=== PATIENT | male | born 1945 | race Caucasian/White ===

== ENCOUNTER 2020-04-20 06:29 | Day surgery (SDC) | payer OTHER, SELFPAY ==
[2020-04-14 13:28] VITALS: BMI 25.8
--- NOTE | 2020-04-18 14:51 | HO.ANESPROP2 ---
Documented by User: Ceci Lane 04/18/20 14:53 HPI - Anesthesia Eval Consult details Narrative: 75yo M for Upper Endoscopy and Colonoscopy [facility] Active Problems Active Problems: All Active Problems (Updated 04/14/20 @ 13:28 by Brissa Woo) Annual physical exam (Acute) Arrhythmia (Acute) Impacted cerumen of right ear (Acute) BPH (benign prostatic hyperplasia) (Acute) Hypertension (Acute) Mullins's esophagus (Acute) Past Medical History Medical History (Updated 04/20/20 @ 07:28 by Arabella Hampton) Arrhythmia Mullins's esophagus BPH (benign prostatic hyperplasia) Constipation GERD (gastroesophageal reflux disease) Glaucoma Hiatal hernia History of alcohol abuse Hypertension Tubular adenoma of colon Family History Family History Father No problems noted. Mother No problems noted. Brother In good health Sister In good health Son In good health Surgical History Surgical History History of esophagogastroduodenoscopy (EGD) History of eye surgery Hx of colonoscopy Social History Social History Are you a primary home health care social worker to a significant other at home: No Do you presently have visiting nurse or other home services: No Alcohol intake: former Smoking Status: Former smoker Use of substances other than those prescribed or required for medical reasons: No Have you been hit, kicked, punched, or otherwise hurt by someone within the past year? If so, by whom?: No Advance Directives: No Advance Directives Information Provided: No Advance Directives on File: No Recently lost weight without trying: No Meds Allergies Allergy/AdvReac Type Severity Reaction Status Date / Time amlodipine Allergy Unknown Unknown Verified 04/13/20 10:36 lisinopril Allergy Unknown cough Verified 04/13/20 10:36 metoprolol Allergy Unknown Unknown Verified 04/13/20 10:36 Exam Exam Date and Time: April 18, 2020 1451 Height,Weight and Vital Signs: Height 5 ft 10 in Weight 81.647 kg Assessment and Plan Assessment Anesthesia Assessment: Chart Reviewed Documented by User: Arabella Hampton 04/20/20 07:31 [facility] Past Medical History Medical History (Updated 04/20/20 @ 07:28 by Arabella Hampton) Arrhythmia Mullins's esophagus BPH (benign prostatic hyperplasia) Constipation GERD (gastroesophageal reflux disease) Glaucoma Hiatal hernia History of alcohol abuse Hypertension Tubular adenoma of colon Family History Family History Father No problems noted. Mother No problems noted. Brother In good health Sister In good health Son In good health Family history of problems with anesthesia: No Surgical History Surgical History History of esophagogastroduodenoscopy (EGD) History of eye surgery Hx of colonoscopy History of Problems with Anesthesia: Yes (Slow awakening (2hrs) with fentanyl/versed for last endoscopy) Social History Social History Are you a primary home health care social worker to a significant other at home: No Do you presently have visiting nurse or other home services: No Alcohol intake: former Smoking Status: Former smoker Use of substances other than those prescribed or required for medical reasons: No Have you been hit, kicked, punched, or otherwise hurt by someone within the past year? If so, by whom?: No Advance Directives: No Advance Directives Information Provided: No Advance Directives on File: No Recently lost weight without trying: No Meds Allergies Allergy/AdvReac Type Severity Reaction Status Date / Time amlodipine Allergy Unknown Unknown Verified 04/13/20 10:36 lisinopril Allergy Unknown cough Verified 04/13/20 10:36 metoprolol Allergy Unknown Unknown Verified 04/13/20 10:36 Exam Height,Weight and Vital Signs: Vital Signs Temp Pulse Resp BP Pulse Ox 04/20/20 06:43 98.2 F 74 18 137/75 97 Airway Mallampati Class: III TM Dist: >3cm Neck ROM: Full Partial: Upper (1 tooth top right) Heart: RRR Lungs: CTAB Assessment and Plan Assessment Anesthesia Assessment: Anesthesia Plan Discussed and Chart Reviewed Final Anesthetic Review NPO: Yes ASA Class: II Final Preanesthetic Review: No Changes in Pt Med Stat, Meds/Allgs Chart Reviewed, Consent Obtained/Reviewed and Anes Risks/Benef Reviewed Patient Risk: Low Procedure Risk: Low Assessment/Block/Sedation in SS: Assess/Block/Sedation-SS Anesthetic Plan Anesthetic Plan: MAC: Disposition: Standard PACU
[2020-04-20 06:43] VITALS: BP 137/75; PULSE 74; RESP 18; TEMP 36.8; O2SAT 97
[2020-04-20] MEDS: Lactated Ringers 1,000 ML 100 ML IVCONT (07:04)
--- NOTE | 2020-04-20 07:30 | PC.NURSE ---
PATIENT STATES HE TOOK 2 ANTACID TABS AT 10 PM AND 0200 AM. ANESTHESIA AWARE.
[2020-04-20 08:35] VITALS: BP 105/63; PULSE 74; RESP 14; TEMP 36.1; O2SAT 93
--- NOTE | 2020-04-20 08:40 | PM.OP ---
Brief Operative Note Date of Service: 04/20/20 Pre-op diagnosis: Mullins's esophagus, History of colon polyps, Screening Post-op diagnosis: other (Mullins's esophagus, Hiatal hernia, Colon polyps) Procedure: EGD with biopsies, Colonoscopy to cecum and TI with snare polypectomy Surgeon: Jose C Quinonez Anesthesia: MAC Estimated blood loss (mL): 4.0 Pathology: other (A. Esophagus 34-35 cm B. Colon polyp at 60cm) Condition: stable Disposition: PACU
[2020-04-20 08:50] VITALS: BP 124/64; PULSE 70; RESP 18; TEMP 36.6; O2SAT 96
--- NOTE | 2020-04-20 09:40 | OP_ITS ---
SURGEON: Jose C Quinonez MD INDICATIONS: The patient presents for followup of Mullins's esophagus, personal history of tubular adenoma of the colon, and colorectal cancer screening. Full consent has been obtained from him for both procedures, including risks of bleeding and perforation. PREOPERATIVE DIAGNOSIS: POSTOPERATIVE DIAGNOSIS: PROCEDURE PERFORMED: ESTIMATED BLOOD LOSS: COMPLICATIONS: ANESTHESIA: Monitored anesthesia care. ASSISTANTS: SPECIMENS: PREOPERATIVE DIAGNOSES: History of Mullins's esophagus, personal history of tubular adenoma of the colon, colorectal cancer screening. POSTOPERATIVE DIAGNOSES: History of Mullins's esophagus, personal history of tubular adenoma of the colon, colorectal cancer screening, hiatal hernia, colon polyps, diverticulosis and internal hemorrhoids. DESCRIPTION OF PROCEDURE: The patient was placed in the left lateral decubitus position. The Olympus video gastroscope was passed in the posterior oropharynx and upper esophagus under direct vision. The scope was passed slowly into the distal esophagus. The gastroesophageal junction appeared at 35 cm. Extending from this to 34 cm, were 2 segments of Mullins's mucosa to a level of 34 cm. There was no associated esophagitis, masses, nor inflammation. The scope was entered into the stomach. There was a moderate-sized hiatal hernia. The scope was advanced to the pylorus and the duodenum was cannulated to the descending portion. The duodenum including the bulb appeared normal without mass or ulceration. The scope was withdrawn back into the stomach. The gastric antrum and body appeared normal with good peristalsis. The scope was retroflexed visualizing the proximal stomach carefully, which appeared normal, without any sign of mass or ulceration. The scope was straightened out and withdrawn back into the esophagus. Multiple biopsies were obtained from the Mullins's mucosa between 34 and 35 cm. Proximal to 34 cm, the esophageal mucosa appeared normal. The scope was withdrawn from the patient. He was turned around for the colonoscopy. The digital rectal exam revealed no abnormalities. The Olympus video pediatric colonoscope was entered into the rectum and advanced easily to the cecum. Once in the cecum, I did identify normal-appearing cecal pouch with appendiceal orifice and a normal-appearing ileocecal valve. The terminal ileum was cannulated and appeared normal. The scope was withdrawn back in the colon. The entire cecum and ileocecal valve appeared normal. The scope was slowly withdrawn assessing all mucosal surfaces carefully. Preparation was excellent. In the transverse colon, was a flat, but raised approximately 6 to 8 mm grossly adenomatous polyp, which was snared, but not recovered. The polypectomy site appeared clean, without any sign of residual polyp nor bleeding. At 60 cm, was an approximately 8 mm polyp, which was snared and recovered by suction. The polypectomy site appeared clean, without any sign of residual polyp nor bleeding. I did not visualize any other polyps, colitis, nor angiodysplasia. There was a mild amount of sigmoid diverticulosis. In the rectum, scope was retroflexed visualizing internal hemorrhoids, but no other pathology. The rectal mucosa appeared normal. The scope was straightened and withdrawn from the patient. He tolerated the procedure well and was returned to the recovery area in stable condition. IMPRESSION: 1. Mullins's esophagus, rule out dysplasia. 2. Hiatal hernia. 3. Colon polyps. 4. Diverticulosis. 5. Internal hemorrhoids. PLAN: The results of the pathology will be checked. I would recommend a repeat colonoscopy in 5 years for further surveillance. I would recommend a repeat upper endoscopy in 3 years for surveillance. He was advised not to use any aspirin and NSAIDs for 1 week. He will otherwise see me on a p.r.n. basis. He will continue his omeprazole. This has been discussed with his . PROCEDURES PERFORMED: Esophagogastroduodenoscopy with biopsies, and colonoscopy to the cecum and terminal ileum with snare polypectomy. MD CLHOE Hill/EDUARDO / [id number]
== END 2020-04-20 09:30 | disposition home or self-care (01) ==
PROVIDERS: PCP Internal Medicine; Visit Provider Internal Medicine
PROC: (CPT 45385; principal; 2020-04-20 07:30)
DX: Z12.11 Encounter for screening for malignant neoplasm of colon (principal); Z86.010 Personal history of colon polyps; D12.4 Benign neoplasm of descending colon; K57.30 Diverticulosis of large intestine without perforation or abscess without bleeding; K64.8 Other hemorrhoids; K21.9 Gastro-esophageal reflux disease without esophagitis; K22.70 Barrett's esophagus without dysplasia; K44.9 Diaphragmatic hernia without obstruction or gangrene; I10 Essential (primary) hypertension; Z79.899 Other long term (current) drug therapy; Z87.891 Personal history of nicotine dependence
CPT/HCPCS: 45385; 43239; 88305

== ENCOUNTER 2020-05-30 08:10 | Outpatient (REF) | payer OTHER, SELFPAY ==
--- NOTE | 2020-05-30 08:16 | ECG_ITS ---
Test Reason : CP Blood Pressure : / mmHG Vent. Rate : 068 BPM Atrial Rate : 068 BPM P-R Int : 176 ms QRS Dur : 086 ms QT Int : 400 ms P-R-T Axes : 033 035 025 degrees QTc Int : 425 ms Sinus rhythm with Premature atrial complexes Otherwise normal ECG When compared with ECG of 22-OCT-2018 08:07, Premature atrial complexes are now Present Referred By: Don Sampson Electronically Signed By:LINDA AQUINO
[2020-05-30 09:05] LABS: MANUAL DIFF FLAG NO
[2020-05-30 09:13] LABS: Basophils Absolute Auto 0.1 X10*3/uL (0.0-0.2); Basophils Percent Auto 0.9 % (0-2); Eosinophils Absolute Auto 0.2 X10*3/uL (0.0-0.4); Eosinophils Percent Auto 2.8 % (0-4); Hematocrit 44.5 % (42-52); Hemoglobin 15.2 g/dl (14.0-18.0); Imm Gran Abs Auto 0.01 X10*3/uL (0.00-0.03); Imm Gran Pct Auto 0.2 % (0.0-0.4); Lymphocytes Absolute Auto 1.2 X10*3/uL (1.2-4.9); Lymphocytes Percent Auto 22.4 % (20-40); Mean Corpuscular HGB Conc 34.2 g/dl (31.0-36.0); Mean Corpuscular Hemoglobin 31.9 pg (27.0-33.0); Mean Corpuscular Volume 93.5 fL (80-98); Mean Platelet Volume 9.5 fL (9.4-12.4); Monocytes Absolute Auto 0.6 X10*3/uL (0.1-1.2); Monocytes Percent Auto 10.5 % (2-11); Neutrophils Absolute Auto 3.4 X10*3/uL (2.0-8.3); Neutrophils Percent Auto 63.2 % (45-73); Platelet Count 263 X10*3/uL (160-400); Red Blood Count 4.76 X10*6/uL (4.60-5.80); Red Cell Distribution Width 12.6 % (11.0-16.0); White Blood Count 5.4 X10*3/uL (4.8-10.8)
[2020-05-30 09:28] LABS: Alanine Aminotransferase 17 U/L (0-40); Albumin Level 4.1 g/dL (3.5-5.0); Alkaline Phosphatase 64 U/L (39-117); Anion Gap 12 (12-20); Aspartate Amino Transferase 18 U/L (5-37); Bilirubin Total 0.9 mg/dL (0.0-1.0); Blood Urea Nitrogen 25 mg/dL (9-16); Carbon Dioxide 31 mmol/L (22-29); Chloride 101 mmol/L (96-108); Cholesterol 192 mg/dL; Estimated Glomerular Filt Rate 57; Glucose Random 98 mg/dL (60-115); HDL Cholesterol 59 mg/dL; LDL Cholesterol Calculated 113 mg/dl; Potassium 4.1 mmol/L (3.3-5.1); Sodium 140 mmol/L (135-145); Triglycerides 101 mg/dL
[2020-05-30 09:51] LABS: Free T4 (Free Thyroxine) 0.99 ng/dL (0.71-1.85); Thyroid Stimulating Hormone 0.86 uIU/mL (0.32-4.0)
[2020-05-30 10:01] LABS: Folate 16.3 ng/mL (> or = 4.0); Vitamin B12 463 pg/mL (200-900)
== END 2020-05-30 08:11 | disposition home or self-care (01) ==
LOC: HO.LAB 08:10
PROVIDERS: PCP Internal Medicine; Visit Provider Internal Medicine
DX: I49.9 Cardiac arrhythmia, unspecified (principal); I10 Essential (primary) hypertension; E78.00 Pure hypercholesterolemia, unspecified
CPT/HCPCS: 36415; 80053; 80061; 82607; 82746; 84439; 84443; 85025; 93005

== ENCOUNTER 2020-12-16 09:44 | Outpatient (REF) | payer OTHER, SELFPAY ==
--- NOTE | ~2020-12-16 | XR_ITS ---
EXAMINATION: XR SHOULDER, RIGHT CLINICAL INFORMATION: Right shoulder pain COMPARISON: None TECHNIQUE: AP external rotation, Grashey, scapular Y, and axillary views of the right shoulder. FINDINGS: No fracture or dislocation. The glenohumeral joint is well aligned. The joint space is maintained. The acromioclavicular joint is intact. The visualized lung is clear. The visualized ribs are intact. XR/XR shoulder RT min 2V IMPRESSION: No fracture or malalignment. No significant arthritic change.
== END 2020-12-16 09:45 | disposition home or self-care (01) ==
LOC: HO.XRAY 09:44
PROVIDERS: PCP Internal Medicine; Visit Provider Physician Assistant
DX: M25.511 Pain in right shoulder (principal); G89.29 Other chronic pain
CPT/HCPCS: 73030

== ENCOUNTER 2021-02-08 10:00 | Outpatient (RCR) | payer OTHER, SELFPAY ==
--- NOTE | 2020-12-29 11:53 | MHC.PT.EP ---
[facility] [place] [facility] [place] [facility] [place] Office [address] Brandt Skinner [address] [phone] F: [phone] F: [phone] F: [phone] F: [phone] Physical Therapy Plan of Care Date of Evaluation: Date of Surgery: Diagnosis: right shoulder Assessment: The patient has reduced shoulder ROM, strength, functional reaching. He has reduced his tennis activity that required a lot of right handed movements. I believe he has an overuse injury of the RTC with slight secondary impingement. He responded well to manual alignment of his shoulder before forward flexion, which suggests secondary impingement. He was educated on a HEP to address weakness in the posterior shoulder and inferior RTC. I also introduced him to posture education. He is a good candidate for skilled PT. Frequency and Duration: The patient will be seen 2x/week x 4 weeks Short Term Goals: . Pt to be able to report 50% improvement in functional reaching. - Pt to be able to report 50% less pain with getting dressed. Senior Living Goals: 4 weeks - The patient to have greater than 160 degrees of flexion and abduction to show improved functional ROM. 4 weeks ? The patient to have 5/5 strength with flexion and abduction to demonstrate functional strength 4 weeks ? The patient to be able to return to all functional reaching, self care ADL's without any limitation from pain or loss of ROM. Treatment Plan: Modalities to reduce pain, spasms and effusion. Manual therapy to restore motion and function. Therapeutic exercise to improve strength and flexibility. Neuromuscular re-education for posture and balance. Therapeutic activities to return to functional activities of daily living. Electronically signed by: Hailee Bustillos PT DPT Please sign and return to therapist. Thank you for your referral.
--- NOTE | 2021-02-08 11:39 | MHC.PT.DC ---
[facility] [place] [facility] [place] Office [place] Office [address] Brandt Skinner [address] [phone] F: [phone] F: [phone] F: [phone] F: [phone] Physical Therapy Discharge Report Diagnosis: right shoulder Date of Surgery: Date of Evaluation: 12/29/20 Date of Discharge: 02/08/21 Treatments to Date: 6 Cancellations to Date: 0 No Shows to Date: 0 Discharge Status: Achieved Goals Improved Function Independent with HEP Discharge Summary: Pt has returned to some light tennis activities without increase in discomfort. He is able to complete all functional activities at his PLOF although he does continue to have some discomfort at night when laying on his R shoulder. Time spent educating and advising pt on how to properly increase tennis activitiy without over doing it. Pt with good understanding of this. Pt is independent in HEP and understands importance of fci continuation of HEP to maintain all gains made thus far. Based on pt progress and current functional status skilled PT is no longer indicated. Pt is in agreement with d/c today. Electronically signed by: Janelle Patel, PT, DPT, ATC Please sign and return to therapist. Thank you for your referral.
== END 2021-02-08 11:40 | disposition home or self-care (01) ==
LOC: HO.PT 10:00
PROVIDERS: PCP Internal Medicine; Visit Provider Physician Assistant
DX: M25.511 Pain in right shoulder (principal); G89.29 Other chronic pain
CPT/HCPCS: 97110; 97112; 97162; 97530

== ENCOUNTER 2021-03-09 10:34 | Outpatient (REF) | payer OTHER, SELFPAY ==
[2021-03-09 10:55] LABS: COVID-19 Test Positive (Negative)
== END 2021-03-09 10:35 | disposition home or self-care (01) ==
LOC: HO.LAB 10:34
PROVIDERS: Visit Provider Internal Medicine
DX: Z20.822 Contact with and (suspected) exposure to COVID-19 (principal)
CPT/HCPCS: 87635; C9803

== ENCOUNTER 2021-03-20 12:16 | Outpatient (REF) | payer OTHER, SELFPAY ==
[2021-03-20 14:08] LABS: Prostate Specific Antigen 2.79 ng/mL (<0.05-4.0)
== END 2021-03-20 12:17 | disposition home or self-care (01) ==
LOC: HO.LAB 12:16
PROVIDERS: PCP Internal Medicine; Visit Provider Urology
DX: N40.0 Benign prostatic hyperplasia without lower urinary tract symptoms (principal); Z12.5 Encounter for screening for malignant neoplasm of prostate
CPT/HCPCS: 36415; 84153

== ENCOUNTER 2021-07-26 08:04 | Outpatient (REF) | payer OTHER, SELFPAY ==
[2021-07-26 08:22] LABS: MANUAL DIFF FLAG NO
[2021-07-26 08:35] LABS: Basophils Percent Auto 0.6 % (0-2); Eosinophils Absolute Auto 0.2 X10*3/uL (0.0-0.4); Eosinophils Percent Auto 3.7 % (0-4); Hematocrit 44.8 % (42.0-52.0); Hemoglobin 15.1 g/dl (14.0-18.0); Imm Gran Abs Auto 0.01 X10*3/uL (0.00-0.03); Imm Gran Pct Auto 0.2 % (0.0-0.4); Lymphocytes Absolute Auto 1.2 X10*3/uL (1.2-4.9); Lymphocytes Percent Auto 23.8 % (20-40); Mean Corpuscular HGB Conc 33.7 g/dl (31.0-36.0); Mean Corpuscular Hemoglobin 30.9 pg (27.0-33.0); Mean Corpuscular Volume 91.8 fL (80.0-98.0); Monocytes Absolute Auto 0.6 X10*3/uL (0.1-1.2); Monocytes Percent Auto 11.8 % (2-11); Neutrophils Absolute Auto 3.1 x10*3/uL (2.0-8.3); Neutrophils Percent Auto 59.9 % (45-73); Platelet Count 248 X10*3/uL (160-400); Red Blood Count 4.88 X10*6/uL (4.60-5.80); Red Cell Distribution Width 12.8 % (11.0-16.0); White Blood Count 5.2 X10*3/uL (4.8-10.8)
[2021-07-26 08:55] LABS: Alanine Aminotransferase 19 U/L (0-40); Albumin Level 4.1 g/dL (3.5-5.0); Alkaline Phosphatase 61 U/L (39-117); Anion Gap 11 (12-20); Aspartate Amino Transferase 20 U/L (5-37); Bilirubin Total 0.9 mg/dL (0.0-1.0); Blood Urea Nitrogen 27 mg/dL (9-16); Calcium 9.2 mg/dL (8.4-10.2); Carbon Dioxide 29 mmol/L (22-29); Chloride 104 mmol/L (96-108); Cholesterol 212 mg/dL; Estimated Glomerular Filt Rate 47; Glucose Random 103 mg/dL (60-115); HDL Cholesterol 58 mg/dL; LDL Cholesterol Calculated 136 mg/dl; Potassium 3.7 mmol/L (3.3-5.1); Sodium 140 mmol/L (135-145); Triglycerides 94 mg/dL
[2021-07-26 09:19] LABS: Free T4 (Free Thyroxine) 1.24 ng/dL (0.71-1.85); Thyroid Stimulating Hormone 0.88 uIU/mL (0.32-4.0)
[2021-07-26 09:25] LABS: Folate 18.3 ng/mL (> or = 4.0); Vitamin B12 512 pg/mL (200-900)
== END 2021-07-26 08:05 | disposition home or self-care (01) ==
LOC: HO.LAB 08:04
PROVIDERS: PCP Internal Medicine; Visit Provider Internal Medicine
DX: I10 Essential (primary) hypertension (principal); E78.00 Pure hypercholesterolemia, unspecified
CPT/HCPCS: 36415; 80053; 80061; 82607; 82746; 84439; 84443; 85025

== ENCOUNTER 2021-08-25 08:12 | Outpatient (REF) | payer OTHER, SELFPAY ==
[2021-08-25 09:11] LABS: Anion Gap 11 (12-20); Blood Urea Nitrogen 22 mg/dL (9-16); Calcium 9.2 mg/dL (8.4-10.2); Carbon Dioxide 30 mmol/L (22-29); Chloride 102 mmol/L (96-108); Estimated Glomerular Filt Rate 53; Glucose Random 95 mg/dL (60-115); Potassium 3.8 mmol/L (3.3-5.1); Sodium 139 mmol/L (135-145)
== END 2021-08-25 08:13 | disposition home or self-care (01) ==
LOC: HO.LAB 08:12
PROVIDERS: PCP Internal Medicine; Visit Provider Internal Medicine
DX: N28.9 Disorder of kidney and ureter, unspecified (principal)
CPT/HCPCS: 36415; 80048

== ENCOUNTER 2021-10-03 13:27 | Outpatient (REF) | payer OTHER, SELFPAY ==
[2021-10-03 13:41] LABS: MANUAL DIFF FLAG NO
[2021-10-03 13:54] LABS: Basophils Absolute Auto 0.1 X10*3/uL (0.0-0.2); Eosinophils Absolute Auto 0.1 X10*3/uL (0.0-0.4); Eosinophils Percent Auto 2.1 % (0-4); Hematocrit 42.1 % (42.0-52.0); Hemoglobin 14.5 g/dl (14.0-18.0); Imm Gran Abs Auto 0.02 X10*3/uL (0.00-0.03); Imm Gran Pct Auto 0.3 % (0.0-0.4); Lymphocytes Absolute Auto 1.3 X10*3/uL (1.2-4.9); Lymphocytes Percent Auto 21.8 % (20-40); Mean Corpuscular HGB Conc 34.4 g/dl (31.0-36.0); Mean Corpuscular Hemoglobin 31.9 pg (27.0-33.0); Mean Corpuscular Volume 92.5 fL (80.0-98.0); Mean Platelet Volume 9.2 fL (9.4-12.4); Monocytes Absolute Auto 0.6 X10*3/uL (0.1-1.2); Monocytes Percent Auto 10.6 % (2-11); Neutrophils Absolute Auto 3.7 x10*3/uL (2.0-8.3); Neutrophils Percent Auto 64.2 % (45-73); Platelet Count 243 X10*3/uL (160-400); Red Blood Count 4.55 X10*6/uL (4.60-5.80); Red Cell Distribution Width 12.8 % (11.0-16.0); White Blood Count 5.8 X10*3/uL (4.8-10.8)
[2021-10-03 14:30] LABS: Alanine Aminotransferase 18 U/L (0-40); Albumin Level 4.1 g/dL (3.5-5.0); Alkaline Phosphatase 69 U/L (39-117); Anion Gap 13 (12-20); Aspartate Amino Transferase 20 U/L (5-37); Bilirubin Total 0.5 mg/dL (0.0-1.0); Blood Urea Nitrogen 17 mg/dL (9-16); Calcium 9.1 mg/dL (8.4-10.2); Carbon Dioxide 30 mmol/L (22-29); Chloride 99 mmol/L (96-108); Cholesterol 216 mg/dL; Estimated Glomerular Filt Rate 56; Glucose Random 99 mg/dL (60-115); HDL Cholesterol 60 mg/dL; LDL Cholesterol Calculated 131 mg/dl; Sodium 138 mmol/L (135-145); Triglycerides 128 mg/dL
[2021-10-03 14:51] LABS: Free T4 (Free Thyroxine) 1.02 ng/dL (0.71-1.85); Thyroid Stimulating Hormone 0.73 uIU/mL (0.32-4.0)
== END 2021-10-03 13:28 | disposition home or self-care (01) ==
LOC: HO.LAB 13:27
PROVIDERS: PCP Internal Medicine; Visit Provider Internal Medicine
DX: I10 Essential (primary) hypertension (principal); E78.00 Pure hypercholesterolemia, unspecified
CPT/HCPCS: 36415; 80053; 80061; 84439; 84443; 85025

== ENCOUNTER 2022-01-22 09:52 | Outpatient (REF) | payer OTHER, SELFPAY ==
[2022-01-22 10:16] LABS: COVID-19 Test Positive (Negative); IDNOW Serial# 55D5AD1C
== END 2022-01-22 09:53 | disposition home or self-care (01) ==
LOC: HO.LAB 09:52
PROVIDERS: Visit Provider Internal Medicine
DX: Z20.822 Contact with and (suspected) exposure to COVID-19 (principal)
CPT/HCPCS: 87635; C9803

== ENCOUNTER 2022-02-02 12:24 | Outpatient (REF) | payer OTHER, SELFPAY ==
--- NOTE | ~2022-02-02 | XR_ITS ---
EXAMINATION: XR SHOULDER, LEFT CLINICAL INFORMATION: Pain in the left shoulder. COMPARISON: None TECHNIQUE: Three views of the left shoulder. FINDINGS: No fracture or dislocation. The glenohumeral joint is well aligned. The joint space is maintained. Small marginal osteophytes are present. The acromioclavicular joint is intact. The visualized lung is clear. The visualized ribs are intact. 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
== END 2022-02-02 12:25 | disposition home or self-care (01) ==
LOC: HO.XRAY 12:24
PROVIDERS: PCP Internal Medicine; Visit Provider Nurse Practitioner Family
DX: M25.512 Pain in left shoulder (principal)
CPT/HCPCS: 73030

== ENCOUNTER 2022-03-02 08:27 | Outpatient (REF) | payer OTHER, SELFPAY ==
[2022-03-02 09:00] LABS: COVID-19 Test Negative (Negative); IDNOW Serial# BCCEAD1C
== END 2022-03-02 08:28 | disposition home or self-care (01) ==
LOC: HO.LAB 08:27
PROVIDERS: Visit Provider Internal Medicine
DX: Z20.822 Contact with and (suspected) exposure to COVID-19 (principal)
CPT/HCPCS: 87635; C9803

== ENCOUNTER 2022-03-07 11:05 | Outpatient (REF) | payer OTHER, SELFPAY ==
--- NOTE | ~2022-03-07 | XR_ITS ---
EXAMINATION: XR SHOULDER, LEFT CLINICAL INFORMATION: Pain left shoulder COMPARISON: None TECHNIQUE: AP external rotation, Grashey, scapular Y, and axillary views of the left shoulder. FINDINGS: The bones and soft tissues are normal. No fracture. Glenohumeral and acromioclavicular alignment is anatomic with normal joint space. No abnormal soft tissue calcifications. XR/XR shoulder LT min 2V IMPRESSION: Unremarkable left shoulder exam
== END 2022-03-07 11:06 | disposition home or self-care (01) ==
LOC: HO.HOSX 11:05
PROVIDERS: Visit Provider Physician Assistant
DX: M75.82 Other shoulder lesions, left shoulder (principal)
CPT/HCPCS: 73030

== ENCOUNTER 2022-04-12 14:00 | Outpatient (RCR) | payer OTHER, SELFPAY | END 2022-05-03 14:15 | disposition home or self-care (01) | LOC: HO.PT 14:00 | PROVIDERS: Visit Provider Nurse Practitioner Family | DX: M25.512 Pain in left shoulder (principal) | CPT/HCPCS: 97014; 97110; 97162; 97530 ==

== ENCOUNTER 2022-07-22 12:42 | Emergency (ER) | payer OTHER, SELFPAY ==
[2022-07-22 13:27] VITALS: BP 126/65; PULSE 69; RESP 18; TEMP 36.4; O2SAT 96; BMI 24.4
--- NOTE | 2022-07-22 13:30 | ED_ITS ---
HPI - General Adult General Chief complaint: Ear Problems Stated complaint: R ear clogged Time Seen by Provider: 07/22/22 13:45 Source: patient, RN notes reviewed and old records reviewed Mode of arrival: ambulatory History of Present Illness HPI narrative: 77-year-old male with a past medical history BPH, HTN, Mullins's esophagus arrhythmia, ETOH abuse, presenting to the ED complaining of clogged right ear x 2 weeks. Admits has been using hydrogen peroxide at home without relief. Denies fever, chills, drainage from the ear, hearing loss, sore throat, cough, fever Onset (ago): week(s) Related Data Previous Rx's Medication Instructions Recorded loratadine 10 mg tablet 10 mg PO DAILY #90 caps 12/16/21 losartan 25 mg tablet 25 mg PO DAILY #90 caps 12/16/21 tamsulosin 0.4 mg capsule 0.4 mg PO DAILY #90 caps 03/16/22 hydrochlorothiazide 25 mg tablet 25 mg PO DAILY #90 caps 06/15/22 omeprazole 20 mg capsule,delayed 20 mg PO DAILY #90 caps 06/15/22 release finasteride 5 mg tablet 5 mg PO DAILY #90 caps 07/15/22 amoxicillin 875 mg-potassium 1 tab PO BID 7 days #14 tabs 07/22/22 clavulanate 125 mg tablet Allergies Allergy/AdvReac Type Severity Reaction Status Date / Time amlodipine Allergy Unknown Unknown Verified 07/22/22 13:27 lisinopril Allergy Unknown cough Verified 07/22/22 13:27 metoprolol Allergy Unknown Unknown Verified 07/22/22 13:27 Review of Systems Review of Systems: Constitutional: No Fever, No Chills ENT/Mouth: + Ear clogged, No Nasal Congestion, No Sinus Pain, No Hoarseness, No sore throat, No Rhinorrhea, No Swallowing Difficulty Cardiovascular: No Chest Pain, No SOB Respiratory: No Cough, No Sputum, No Wheezing Gastrointestinal: No Nausea, No Vomiting, No Abdominal pain Musculoskeletal: No joint pain, No Myalgias, No Joint Swelling Skin: No Skin Lesions, No rash Neuro: No Weakness Yes all other systems are reviewed and are negative Constitutional: Constitutional: Reports as per [facility] Past Medical History Attestation statement: The following information was validated with the patient. Source: old records reviewed Medical History Arrhythmia Mullins's esophagus BPH (benign prostatic hyperplasia) Constipation GERD (gastroesophageal reflux disease) Glaucoma Hiatal hernia History of alcohol abuse Hypertension Tubular adenoma of colon Surgical History History of esophagogastroduodenoscopy (EGD) History of eye surgery Hx of colonoscopy Family History Family History Father No problems noted. Mother No problems noted. Brother In good health Sister In good health Son In good health Social History Social History Housing: House Are you a primary healthcare marketer to a significant other at home: No Do you presently have visiting nurse or other home services: No Alcohol intake: former Patient Tobacco Use Status: Former Tobacco user Tobacco use type: Cigarette Years Smoked: stopped 1997 e-Cigarette/Vaping Use: Never Used Advance Directives: No Advance Directives Information Provided: No service: No Current occupational status: retired Cognitive needs: No Hearing needs: No Vision needs: Yes Physical Exam ED Vital Signs: Vital Signs - 24 hr 07/22/22 13:27 Temperature 97.6 F Pulse Rate 69 Respiratory Rate 18 Blood Pressure 126/65 Pulse Oximetry 96 Oxygen Delivery Method Room Air BMI result Body Mass Index 24.4 Const General: cooperative, healthy appearing and no acute distress Orientation/consciousness: patient oriented x3 Limitations: no limitations HENMT Head: Yes normal to inspection and Yes atraumatic Ears: hearing grossly normal bilaterally, external ears normal, Abnormal EAC present cerumen impaction on the right; no EA tenderness and no otic discharge and TM abnormal dull on the right and with loss of landmarks on the right General nose exam: Normal external nose present Face and sinus: Yes normal facial exam Throat: Yes posterior oropharynx normal, Yes tonsils normal, Yes uvula midline, No peritonsillar mass, No uvula laterally displaced and No uvular edema Eyes General: appearance normal, both eyes and all related structures EOM: EOMs intact bilaterally Neck Neck: Yes normal visual inspection, Yes no lymphadenopathy and Yes no meningeal signs Resp Effort & Inspection: normal respiratory effort and no respiratory distress Cardio Rate: regular rate Skin Rashes: no rashes Wounds: no wounds Neuro General: patient oriented x3, tone normal and no meningeal signs Gait exam (Neuro): Normal gait present Extrem General: Yes normal to inspection Course Course Course Narrative: RME: 77 yold male presents to the ED for right clogged. improved slight with hydrogen peroxide. Cerumen in right ear. no ear pain or fever/chills Procedures Ear Wax Removal Right Ear: Cerumenolytic Used: 5-10% Sodium Bicarb solution Results: Re-examined: cerumen removed completely TM Examination: TM(s) intact, normal appearance Ear Canal Exam: atraumatic Patient Tolerated Procedure: well and no complications Technique: ear canal irrigated Medical Decision Making Medical Decision Making [facility] Narrative: 77-year-old male with a past medical history BPH, HTN, Mullins's esophagus arrhythmia, ETOH abuse, presenting to the ED complaining of clogged right ear x 2 weeks. On exam vital signs stable, NAD, nontoxic appearing, right TM obscured by cerumen, completely cleared with irrigation, TM dull with loss of landmarks consistent with otitis media. 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 antibiotics Please refer to course for remaining clinical decision making, interpretation of labs/imaging results, and discussions with consultants and/or family members. Differential Diagnosis Differential Diagnoses: The differential diagnosis associated with the presentation includes As above Admission/Observation Consideration of admission/observation: Escalation of care including admission/observation considered External Record Review External record reviewed: Inpatient record, Office record, Outpatient record, Prior outpatient labs, Prior outpatient radiology, Primary care record and Outside ED record Tests considered The following testing was considered but not selected: As above Discharge Plan Discharge Clinical Impression: Cerumen impaction, Otitis media Patient Disposition: Home, Self-Care Instructions: Ear Infection (ED) Additional Instructions: Augmentin is an antibiotic please take as prescribed Please follow-up with her doctor and ENT as needed Continue peroxide/saline soaks at home to help with ear wax buildup If symptoms persist or worsen return to the ED Prescriptions: New amoxicillin-pot clavulanate 875-125 mg tablet 1 tab PO BID 7 Days Qty: 14 0RF No Action losartan 25 mg tablet 25 mg PO DAILY Qty: 90 2RF loratadine 10 mg tablet 10 mg PO DAILY Qty: 90 2RF tamsulosin 0.4 mg capsule 0.4 mg PO DAILY Qty: 90 2RF omeprazole 20 mg capsule,delayed release(DR/EC) 20 mg PO DAILY Qty: 90 2RF hydrochlorothiazide 25 mg tablet 25 mg PO DAILY Qty: 90 1RF finasteride 5 mg tablet 5 mg PO DAILY Qty: 90 1RF Referrals: Mukesh Goodwin [Physician] - Po,Don Montgomery MD [Primary Care Provider] - 5 days Interventions: ED Discharge Assessment Last Done: 07/22/22 14:21 Discharge Date/Time: 07/22/22 14:23
--- NOTE | 2022-07-22 14:21 | PC.NURSE ---
observed PA michele removed impacted cerumen with elephant ear - dismantler, solution on Ns and hydrogen peroxide was used. large amount of cerumen was evacuated from ear canal- well tolerated by pt
== END 2022-07-22 14:23 | disposition home or self-care (01) ==
PROVIDERS: Emergency Provider Internal Medicine; PCP Internal Medicine
DX: H61.21 Impacted cerumen, right ear (principal)
CPT/HCPCS: 69209; 99282; 99283

== ENCOUNTER 2022-10-30 13:28 | Outpatient (AMB) | payer OTHER, SELFPAY ==
[2022-10-30 14:57] VITALS: BP 132/22; PULSE 86; TEMP 36.4; O2SAT 98; BMI 25.1
--- NOTE | 2022-10-30 14:57 | AM.OFFWIN_ITS ---
Intake Vital Signs 10/30/22 14:57 Height 5 ft 10 in Weight 175 lb 4 oz BMI 25.1 BP 132/22 L Blood Pressure Location Rt brachial Position Sitting Pulse 86 Pulse Source Pulse Oximeter Temp 97.5 F Temp Source Temporal Artery Scan Pulse Oximetry (%) 98 Intake Visit Reasons: Est/left foot 2nd toe blackened Intake Note: pt is here for c/o left foot 2nd toe blackened Patient Tobacco Use Status: Former Tobacco user Allergies amlodipine Allergy (Unknown, Verified 10/30/22 15:33) Unknown lisinopril Allergy (Unknown, Verified 10/30/22 15:33) cough metoprolol Allergy (Unknown, Verified 10/30/22 15:33) Unknown Medication List - Last Reconciled 10/30/22 by Cecilio Buckley MD finasteride 5 mg PO DAILY hydrochlorothiazide 25 mg PO DAILY loratadine 10 mg PO DAILY losartan 25 mg PO DAILY omeprazole 20 mg PO DAILY tamsulosin 0.4 mg PO DAILY Do you need a note to return to daycare/school/sports/work: Yes HPI Est/left foot 2nd toe blackened HPI Details 77-year-old male presents to the office for a sick visit. Patient has noticed the 2nd toenail is turning black in the last week. He wears a shoe 1 or 2 sizes bigger than his foot. Sometimes his foot keeps sliding front and hitting the edge. [facility] Medical History Arrhythmia Mullins's esophagus BPH (benign prostatic hyperplasia) Constipation GERD (gastroesophageal reflux disease) Glaucoma Hiatal hernia History of alcohol abuse Hypertension Tubular adenoma of colon Surgical History History of esophagogastroduodenoscopy (EGD) History of eye surgery Hx of colonoscopy Family History Father No problems noted. Mother No problems noted. Brother In good health Sister In good health Son In good health Social History Housing: House Are you a primary day care aide to a significant other at home: No Do you presently have visiting nurse or other home services: No Alcohol intake: former Patient Tobacco Use Status: Former Tobacco user Tobacco use type: Cigarette Years Smoked: stopped 1997 e-Cigarette/Vaping Use: Never Used Second Hand Smoke Exposure: Yes service: No Current occupational status: retired Cognitive needs: No Hearing needs: No Vision needs: Yes Physical Exam Vital Signs: Last Vital Signs Temp 97.5 F 10/30/22 14:57 Pulse 86 10/30/22 14:57 BP 132/22 L 10/30/22 14:57 Pulse Ox 98 10/30/22 14:57 BMI result Body Mass Index 25.1 Extrem Other: Left foot: 2nd toenail: Blackish discoloration under the nail, evidence of clotted blood. No tenderness along the edges of the nail. Assessment & Plan Assessment & Plan (1) Subungual hematoma of second toe of left foot: Code(s): S90.222A - Contusion of left lesser toe(s) with damage to nail, initial encounter Qualifiers: Encounter type: initial encounter Qualified Code(s): S90.222A - Contusion of left lesser toe(s) with damage to nail, initial encounter Plan: Reassurance. Patient was advised that as there is no symptoms of pain or discomfort, no further action is needed. Coding Level of Care Code Est Pt Level 3 (91139) Diagnoses Subungual hematoma of second toe of left foot, initial encounter S90.222A Encounter type: initial encounter
== END 2022-10-30 15:49 | disposition home or self-care (01) ==
PROVIDERS: PCP Internal Medicine; Visit Provider Internal Medicine
DX: S90.222A Contusion of left lesser toe(s) with damage to nail, initial encounter (principal)
CPT/HCPCS: 99213

== ENCOUNTER 2022-11-06 07:43 | Outpatient (REF) | payer OTHER, SELFPAY ==
[2022-11-06 07:57] LABS: MANUAL DIFF FLAG NO
[2022-11-06 08:35] LABS: Basophils Absolute Auto 0.1 X10*3/uL (0.0-0.2); Basophils Percent Auto 1.2 % (0-2); Eosinophils Absolute Auto 0.3 X10*3/uL (0.0-0.4); Eosinophils Percent Auto 5.5 % (0-4); Hematocrit 44.4 % (42.0-52.0); Hemoglobin 14.8 g/dl (14.0-18.0); Imm Gran Abs Auto 0.01 X10*3/uL (0.00-0.03); Imm Gran Pct Auto 0.2 % (0.0-0.4); Lymphocytes Absolute Auto 1.2 X10*3/uL (1.2-4.9); Lymphocytes Percent Auto 23.4 % (20-40); Mean Corpuscular HGB Conc 33.3 g/dl (31.0-36.0); Mean Corpuscular Hemoglobin 31.1 pg (27.0-33.0); Mean Corpuscular Volume 93.3 fL (80.0-98.0); Mean Platelet Volume 9.2 fL (9.4-12.4); Monocytes Absolute Auto 0.6 X10*3/uL (0.1-1.2); Monocytes Percent Auto 12.6 % (2-11); Neutrophils Absolute Auto 2.9 x10*3/uL (2.0-8.3); Neutrophils Percent Auto 57.1 % (45-73); Platelet Count 304 X10*3/uL (160-400); Red Blood Count 4.76 X10*6/uL (4.60-5.80); Red Cell Distribution Width 12.3 % (11.0-16.0); White Blood Count 5.1 X10*3/uL (4.8-10.8)
[2022-11-06 09:08] LABS: Alanine Aminotransferase 13 U/L (0-40); Alkaline Phosphatase 67 U/L (39-117); Anion Gap 13 (12-20); Aspartate Amino Transferase 17 U/L (5-37); Bilirubin Total 0.9 mg/dL (0.0-1.0); Blood Urea Nitrogen 17 mg/dL (9-16); Calcium 9.7 mg/dL (8.4-10.2); Carbon Dioxide 31 mmol/L (22-29); Chloride 101 mmol/L (96-108); Cholesterol 205 mg/dL (<200); Estimated Glomerular Filt Rate 60; Glucose Random 95 mg/dL (60-115); HDL Cholesterol 57 mg/dL (>40); LDL Cholesterol Calculated 127 mg/dL (<100); Potassium 3.5 mmol/L (3.3-5.1); Sodium 141 mmol/L (135-145); Total Protein 7.3 g/dL (6.5-8.0); Triglycerides 109 mg/dL (<150)
[2022-11-06 09:22] LABS: PSA,Total (Free>4and<10) 3.21 ng/mL (0.00-4.00)
[2022-11-06 09:30] LABS: Thyroid Stimulating Hormone 1.32 uIU/mL (0.32-4.0)
[2022-11-06 09:34] LABS: Folate 15.6 ng/mL (> or = 4.0); Vitamin B12 766 pg/mL (200-900)
== END 2022-11-06 07:44 | disposition home or self-care (01) ==
LOC: HO.LAB 07:43
PROVIDERS: PCP Internal Medicine; Visit Provider Internal Medicine
DX: Z12.5 Encounter for screening for malignant neoplasm of prostate (principal); E78.00 Pure hypercholesterolemia, unspecified; I10 Essential (primary) hypertension
CPT/HCPCS: 36415; 80053; 80061; 82607; 82746; 84153; 84439; 84443; 85025

== ENCOUNTER 2023-05-07 08:52 | Outpatient (AMB) | payer OTHER, SELFPAY ==
[2023-05-07 09:00] VITALS: BP 130/60; PULSE 78; O2SAT 98; BMI 25.7
--- NOTE | 2023-05-07 09:00 | MHC.PC.OV ---
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 Occupational Medicine Required: No Allergies amlodipine Allergy (Unknown, Verified 05/07/23 09:00) Unknown lisinopril Allergy (Unknown, Verified 05/07/23 09:00) cough metoprolol Allergy (Unknown, Verified 05/07/23 09:00) Unknown Medication List - Last Reconciled 05/07/23 by Don Sampson MD ascorbate calcium (vitamin C) 500 mg PO DAILY cholecalciferol (vitamin D3) 25 mcg PO DAILY finasteride 5 mg PO DAILY [hair growth PO] hydrochlorothiazide 25 mg PO DAILY loratadine 10 mg PO DAILY losartan 25 mg PO DAILY melatonin 10 mg PO BEDTIME PRN multivitamin 1 tab PO DAILY multivitamin with iron (Hair Vitamins tablet) 1 tab PO DAILY omega 4-blc-rqd-fish oil 300-1,000 mg (Fish Oil) 1 cap PO DAILY omeprazole 20 mg PO DAILY tamsulosin 0.4 mg PO DAILY Tobacco use date assessed: 05/07/23 Fall risk assessment: No Falls in past year Last assessed Fall Risk: 05/07/23 Dental Screening Dental Screen Date: 05/07/23 Did you have a dental visit in the last 12 months?: Yes Did you have a dental problem in the last 6 months where you did not have access to dental care?: No Was dental information given to patient?: Patient has dentist HPI Annual Exam HPI Details 78-year-old male with hypertension last seen in July 2022. Colonoscopy is up-to-date April 2020. Review of the notes sees Dermatology actinic keratosis with chondrodermatitis eczema. Seen in the Urgent Center in October for 2nd toe left hematoma. July Urgent Center seen by nurse practitioner for ear infection. Patient comes in for physical exam [facility] Medical History Arrhythmia Mullins's esophagus BPH (benign prostatic hyperplasia) Constipation GERD (gastroesophageal reflux disease) Glaucoma Hiatal hernia History of alcohol abuse Hypertension Tubular adenoma of colon Surgical History History of esophagogastroduodenoscopy (EGD) History of eye surgery Hx of colonoscopy Family History Father No problems noted. Mother No problems noted. Brother In good health Sister In good health Son In good health Social History (Updated 05/07/23 @ 09:32 by Don Sampson MD) Housing: House Are you a primary grounds caretaker to a significant other at home: No Do you presently have visiting nurse or other home services: No Alcohol intake: former Comment: stopped since 1983 Patient Tobacco Use Status: Former Tobacco user Tobacco use type: Cigarette Years Smoked: stopped 1997 e-Cigarette/Vaping Use: Never Used Second Hand Smoke Exposure: Yes service: No Current occupational status: retired Cognitive needs: No Hearing needs: No Vision needs: Yes Questionnaire PHQ-9 Over the last 2 weeks, how often have you been bothered by any of the following problems? 1. Little interest or pleasure in doing things: not at all 2. Feeling down, depressed, or hopeless: not at all 3. Trouble falling or staying asleep, or sleeping too much: not at all 4. Feeling tired or having little energy: not at all 5. Poor appetite or overeating: not at all 6. Feeling bad about yourself - or that you are a failure or have let yourself or your family down: not at all 7. Trouble concentrating on things, such as reading the newspaper or watching television: not at all 8. Moving or speaking so slowly that other people could have noticed. Or the opposite - being so fidgety or restless that you have been moving around a lot more than usual: not at all 9. Thoughts that you would be better off or of hurting yourself in some way: not at all Total score: 0 Depression Screening Interpretation: Negative Depression Screening Done: Yes Source: Developed by Drs. Jose C Nesbitt, Yanique Felton, Toi Gutiérrez and colleagues, with an educational radha from [employer]. Thrive Questionnaire Date Thrive assessed: 05/07/23 I am a: Patient What is your living situation today?: I have a steady place to live Within the past 12 months, did the food you bought not last and you didn't have the money to get more?: Never true Within the past 12 months, did you worry whether your food would run out before you got money to buy more?: Never true Do you have trouble paying for medicines?: No Do you have trouble getting transportation to medical appointments?: No Do you have trouble paying your heating and electricity bill?: No Do you have trouble taking care of your child, family member or friend?: No Do you have trouble with day-to-day activities such as bathing, preparing meals, shopping, managing finances, etc.?: No Are you currently unemployed and looking for a job?: No Are you interested in more education?: No Please select the resources that you would like help with: None THRIVE Score: 0 AUDIT C Alcohol Use Questionnaire (AUDIT-C) 1. How often do you have a drink containing alcohol?: Never 3. How often do you have six or more drinks on one occasion?: Never Total Score: 0 NAWAF-7 AMB Questionnaire NAWAF-7 Date NAWAF - 7 assessed: 05/07/23 Feeling nervous, anxious, or on edge: 0 = Not at all Not being able to stop or control worryin = Not at all Worrying too much about different things: 0 = Not at all Trouble relaxin = Not at all Being so restless that it is hard to sit still: 0 = Not at all Becoming easily annoyed or irritable: 0 = Not at all Feeling afraid as if something awful might happen: 0 = Not at all Total NAWAF-7 score (0-4 normal; 5-9 mild; 10-14 moderate; 15-21 severe): 0 Source: Developed by Drs. Jose C Nesbitt, Yanique Felton, Toi Gutiérrez and colleagues, with an educational radha from [employer]. Review of Systems Const Denies poor appetite and Denies weakness Eyes Denies no additional complaints ENT Reports Normal hearing present, Denies dizziness, Denies nasal congestion, Denies tinnitus and Denies sore throat Card Denies chest pain, Denies syncope, Denies rapid heart rate and Denies dyspnea Resp Denies cough and Denies dyspnea GI Denies change in stool character, Reports constipation, Denies diarrhea, Denies nausea and Denies vomiting Denies dysuria and Denies urinary frequency Neuro Reports Normal hearing present, Denies confusion, Denies dizziness, Denies syncope and Denies weakness Psych Denies confusion Physical exam (Primary Care) Vital Signs: Last Vital Signs Pulse 78 05/07/23 09:00 BP 130/60 05/07/23 09:00 Pulse Ox 98 05/07/23 09:00 Oxygen Delivery Method Room Air 05/07/23 09:00 BMI result Body Mass Index 25.7 Tobacco/Smoking Status: Tobacco use Status Tobacco use date assessed 05/07/23 05/07/23 09:05 Patient Tobacco Use Status Former Tobacco user 05/07/23 09:05 Tobacco use type Cigarette 05/07/23 09:05 e-Cigarette/Vaping Use Never Used 05/07/23 09:05 PHQ-9: PHQ-9 Score PHQ-9: Total score 0 05/07/23 09:06 Depression Screening Interpretation: Negative Thrive Assessment: Date of Thrive Assessment Date Thrive assessed 05/07/23 05/07/23 09:05 Const General: No confusion Orientation/consciousness: No confusion HENMT Other: impacted cerumen R ear. L TM intact Head: Yes normocephalic Ears: external ears normal Face and sinus: Yes normal facial exam Mouth: moist mucous membranes Throat: Yes tonsils normal Eyes Conjunctivae: conjunctivae normal Pupils: Equal, round and reactive pupils present and Pupil accommodation reflex normal Direct Ophthalmoscopy: normal light reflex Neck Neck: No lymphadenopathy Thyroid: Thyroid normal Chest Chest palpation & inspection: normal inspection of the chest Resp Effort & Inspection: normal respiratory effort and no audible wheezes Auscultation: clear to auscultation bilaterally, no crackles, no wheezes and lung sounds not diminished Cardio Other: bigeminy Rhythm: regular rhythm Peripheral pulses: radial pulses present and dorsalis pedis present GI Other: declined Palpation (GI): no masses Auscultation: normal bowel sounds and normoactive bowel sounds Rectal Exam - Male: Yes deferred Male General Exam: Yes normal external exam Skin General skin exam: no rashes or lesions noted Rashes: no rashes Neuro General: No confusion Cranial nerves: Yes Equal, round and reactive pupils present and Yes Normal hearing present Cognition (Neuro): normal cognition Gait exam (Neuro): Normal gait present Motor exam (neuro): 5/5 motor strength present throughout Deep tendon reflexes (DTR's): Right brachioradialis reflex intensity grade: 2+, Left brachioradialis reflex intensity grade: 2+, Right patellar reflex intensity grade: 2+ and Left patellar reflex intensity grade: 2+ Extrem General: No edema Assessment and Plan Assessment & Plan (1) Hypertension: Code(s): I10 - Essential (primary) hypertension Qualifiers: Hypertension type: essential hypertension Qualified Code(s): I10 - Essential (primary) hypertension Plan: Continue with blood pressure medication. Decrease salt intake and exercise presently on hydrochlorothiazide and losartan (2) Mullins's esophagus: Code(s): K22.70 - Mullins's esophagus without dysplasia Qualifiers: Mullins's esophagus type: without dysplasia Qualified Code(s): K22.70 - Mullins's esophagus without dysplasia Plan: Avoid the foods that causes that usually spicy foods, tomato products, juices, coffee, soda and foods that your sensitive to. After eating do not lie down, allow 3-4 hours before in lie down. And keep the head of bed above 30 degrees to avoid the acid from going up. On omeprazole (3) BPH (benign prostatic hyperplasia): Comment: / Larry 03/2020 Code(s): N40.0 - Benign prostatic hyperplasia without lower urinary tract symptoms Qualifiers: Lower urinary tract symptom presence: symptoms present Lower urinary tract symptom detail: urinary frequency Qualified Code(s): N40.1 - Benign prostatic hyperplasia with lower urinary tract symptoms; R35.0 - Frequency of micturition Plan: Continue with finasteride and tamsulosin (4) Annual physical exam: Code(s): Z00.00 - Encounter for general adult medical examination without abnormal findings Orders: Orders Complete Blood Count Auto Diff 6 Months I10 - Essential (primary) hypertension Prostate Specific Antigen Scr 6 Months I10 - Essential (primary) hypertension Comprehensive Met. Panel 6 Months I10 - Essential (primary) hypertension Free T4 (Free Thyroxine) 6 Months I10 - Essential (primary) hypertension Lipid Panel 6 Months E78.00 - Pure hypercholesterolemia, unspecified, I10 - Essential (primary) hypertension Vitamin B12 and Folate 6 Months I10 - Essential (primary) hypertension Thyroid Stimulating Hormone 6 Months I10 - Essential (primary) hypertension Coding Level of Care Code Est Pt Prev Care >65y(92218) Diagnoses Essential hypertension I10 Hypertension type: essential hypertension Mullins's esophagus without dysplasia K22.70 Mullins's esophagus type: without dysplasia Benign prostatic hyperplasia with urinary frequency N40.1; R35.0 Lower urinary tract symptom presence: symptoms present Lower urinary tract symptom detail: urinary frequency Annual physical exam Z00.00
== END 2023-05-07 09:53 | disposition home or self-care (01) ==
PROVIDERS: Visit Provider Internal Medicine
DX: I10 Essential (primary) hypertension (principal); K22.70 Barrett's esophagus without dysplasia; N40.1 Benign prostatic hyperplasia with lower urinary tract symptoms; R35.0 Frequency of micturition; Z00.00 Encounter for general adult medical examination without abnormal findings
CPT/HCPCS: 99397

== ENCOUNTER 2023-05-10 09:46 | Outpatient (AMB) | payer OTHER, SELFPAY ==
--- NOTE | 2023-05-10 10:08 | MHC.OFFWIV ---
Intake Vital Signs 05/10/23 10:09 Height 5 ft 10 in Weight 182 lb BMI 26.1 BP 110/78 Blood Pressure Location Lt brachial Position Sitting Pulse 86 Pulse Source Pulse Oximeter Temp 97.9 F Temp Source Temporal Artery Scan Pulse Oximetry (%) 97 Oxygen Delivery Method Room Air Intake Visit Reasons: EP Rt ear wax removal Intake Note: pt is here today rt ear wax removal Patient Tobacco Use Status: Former Tobacco user Allergies amlodipine Allergy (Unknown, Verified 05/10/23 10:21) Unknown lisinopril Allergy (Unknown, Verified 05/10/23 10:21) cough metoprolol Allergy (Unknown, Verified 05/10/23 10:21) Unknown Do you need a note to return to daycare/school/sports/work: No HPI HPI Comments History of Present Illness Details 78 y/o male patient who presents to walk in clinic with c/o right ear cerumen impaction. Reports having this issue more often and usually Ear Irrigations do help. He has been using OTC Earwax removal with no much relief. [facility] Medical History Arrhythmia Mullins's esophagus BPH (benign prostatic hyperplasia) Constipation GERD (gastroesophageal reflux disease) Glaucoma Hiatal hernia History of alcohol abuse Hypertension Tubular adenoma of colon Surgical History History of esophagogastroduodenoscopy (EGD) History of eye surgery Hx of colonoscopy Family History Father No problems noted. Mother No problems noted. Brother In good health Sister In good health Son In good health Social History (Updated 05/07/23 @ 09:32 by Don Sampson MD) Housing: House Are you a primary intensive care unit registered nurse to a significant other at home: No Do you presently have visiting nurse or other home services: No Alcohol intake: former Comment: stopped since 1983 Patient Tobacco Use Status: Former Tobacco user Tobacco use type: Cigarette Years Smoked: stopped 1997 e-Cigarette/Vaping Use: Never Used Second Hand Smoke Exposure: Yes service: No Current occupational status: retired Cognitive needs: No Hearing needs: No Vision needs: Yes Review of Systems Const All systems reviewed & are unremarkable except as noted in HPI and below Physical Exam Vital Signs: Last Vital Signs Temp 97.9 F 05/10/23 10:09 Pulse 86 05/10/23 10:09 BP 110/78 05/10/23 10:09 Pulse Ox 97 05/10/23 10:09 Oxygen Delivery Method Room Air 05/10/23 10:09 BMI result Body Mass Index 26.1 Const General: comfortable and no acute distress Orientation/consciousness: patient oriented x3 HEENT Head: Yes normocephalic Ears: external ears normal and TM abnormal obstructed by cerumen bilateral General nose exam: No nasal discharge present Face and sinus: Yes sinuses nontender Throat: Yes posterior oropharynx normal Neuro General: patient oriented x3, gait normal and moves all extremities Psych Speech and movement: Normal speech and movement present Office Procedures Cerumen Removal From which ear canal was the cerumen removed: right Removal: irrigation Notes: patient tolerated procedure well [id number] Irrigation/Lavage Assessment & Plan Assessment & Plan (1) Cerumen impaction: Code(s): H61.20 - Impacted cerumen, unspecified ear Qualifiers: Laterality: right Qualified Code(s): H61.21 - Impacted cerumen, right ear Plan: - Earwax Lavage in Office - All the Wax removed - TM Bilateral Clear Coding Level of Care Code Est Pt Level 3 (10008) Diagnoses Impacted cerumen of right ear H61.21 Laterality: right CPT Codes Office Procedure - CPT: 66619-Zas Irrigation/Lavage ([id number]) Time Spent (min) 15
[2023-05-10 10:09] VITALS: BP 110/78; PULSE 86; TEMP 36.6; O2SAT 97; BMI 26.1
== END 2023-05-10 10:51 | disposition home or self-care (01) ==
PROVIDERS: PCP Internal Medicine; Visit Provider Nurse Practitioner Family
DX: H61.21 Impacted cerumen, right ear (principal)
CPT/HCPCS: 69209; 99213

== ENCOUNTER 2023-06-17 09:42 | Outpatient (REF) | payer OTHER, SELFPAY ==
--- NOTE | ~2023-06-17 | XR_ITS ---
EXAMINATION: XR SHOULDER, RIGHT CLINICAL INFORMATION: Right shoulder pain. Injury on 06/15/2023. COMPARISON: Right shoulder radiographs dated 12/16/2020. TECHNIQUE: AP external rotation, Grashey, scapular Y, and axillary views of the right shoulder. FINDINGS: No acute fracture or dislocation. Tiny acromioclavicular and glenohumeral marginal osteophytes. No osseous erosion. No abnormal soft tissue calcification. XR/XR shoulder RT min 2V IMPRESSION: Minimal acromioclavicular and glenohumeral osteoarthritis.
== END 2023-06-17 09:43 | disposition home or self-care (01) ==
LOC: HO.XRAY 09:42
PROVIDERS: PCP Internal Medicine; Visit Provider Nurse Practitioner Primary Care
DX: M25.511 Pain in right shoulder (principal); I10 Essential (primary) hypertension
CPT/HCPCS: 73030

== ENCOUNTER 2023-08-28 14:00 | Outpatient (RCR) | payer OTHER, SELFPAY ==
--- NOTE | 2023-08-07 16:54 | MHC.PT.EP ---
[facility] [place] Office [place] [facility] [place] Office [address] Brandt Skinner [address] [phone] F: [phone] F: [phone] F: [phone] F: [phone] Physical Therapy Plan of Care Date of Evaluation: 08/07/23 Date of Surgery: Diagnosis: R shoulder RTC tendonitis. Assessment: Pt is a 78 y/o male referred to PT for eval and treat of R shoulder RTC tendonitis who reports he had pain of his R arm after hitting a ramón at tennis which occurred in May and his current condition is resulting in decreased tolerance for laying on his R side, reaching high shelves, lifting objects of weight as well as pushing and pulling with his R arm secondary to mild decreased R shoulder ROM, decreased R shoulder strength, decreased scapular posture and pain with activity. Pt is deemed an appropriate candidate to receive skilled PT services to address their physical impairments in order to improve their functional ability. Frequency and Duration: The patient will be seen 2 x/ wk x 3 wks. Short Term Goals: Initiate home program. 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 Pt will be able to place objects on high shelf with managed Sx. Improve R shoulder IR strength by at least 1/2 MMT grade; initial 4/5. Improve SPADI outcome by at least 9 points. Treatment Plan: Modalities to reduce pain, spasms and effusion. Manual therapy to restore motion and function. Therapeutic exercise to improve strength and flexibility. Neuromuscular re-education for posture and balance. Therapeutic activities to return to functional activities of daily living. Electronically signed by: Juanpablo Mobley PT. Please sign and return to therapist. Thank you for your referral.
--- NOTE | 2023-08-28 17:50 | MHC.PT.DC ---
[facility] [place] [facility] [place] [facility] [place] [facility] [address] Brandt Skinner [address] [phone] F: [phone] F: [phone] F: [phone] F: [phone] Physical Therapy Discharge Report Diagnosis: R shoulder RTC tendonitis. Date of Surgery: Date of Evaluation: 08/07/23 Date of Discharge: 08/28/23 Treatments to Date: 4 Cancellations to Date: No Shows to Date: Discharge Status: Achieved Goals Improved Function Independent with HEP Discharge Summary: King has been an active and motivated participant in his therapy in and out of the clinic; he is improved of his condition, I with his home program, pleased with his treatment and in agreement with DC at this time. Electronically signed by: Juanpablo Mobley PT. Please sign and return to therapist. Thank you for your referral.
== END 2023-08-28 17:50 | disposition home or self-care (01) ==
LOC: HO.PT 14:00
PROVIDERS: PCP Internal Medicine; Visit Provider Internal Medicine
DX: M75.81 Other shoulder lesions, right shoulder (principal)
CPT/HCPCS: 97110; 97161

== ENCOUNTER 2023-10-14 10:23 | Day surgery (SDC) | payer OTHER, SELFPAY ==
[2023-10-10 14:52] VITALS: BMI 24.7
[2023-10-14 10:56] VITALS: BMI 23.7
[2023-10-14 11:16] VITALS: BP 132/71; PULSE 74; RESP 16; TEMP 37.2; O2SAT 94
--- NOTE | 2023-10-14 11:17 | ECG_ITS ---
Test Reason : ? afib Blood Pressure : / mmHG Vent. Rate : 064 BPM Atrial Rate : 064 BPM P-R Int : 174 ms QRS Dur : 080 ms QT Int : 398 ms P-R-T Axes : -07 019 025 degrees QTc Int : 410 ms Sinus rhythm with marked sinus arrhythmia Otherwise normal ECG When compared with ECG of 30-MAY-2020 08:32, Premature atrial complexes are no longer Present Referred By: Maureen Solitario Electronically Signed By:GENARO ANGELES
--- NOTE | 2023-10-14 11:42 | HO.ANESPROP2 ---
HPI - Anesthesia Eval Consult details Narrative: upper endo PMFSH Active Problems Active Problems: All Active Problems Subungual hematoma of second toe of left foot (Acute) Right rotator cuff tendonitis (Acute) Left shoulder pain (Acute) Renal insufficiency (Acute) COVID-19 virus infection (Acute) Right shoulder pain (Acute) Preop exam for internal medicine (Acute) Impacted cerumen of right ear (Acute) Arrhythmia (Acute) Annual physical exam (Acute) BPH (benign prostatic hyperplasia) (Acute) Hypertension (Acute) Mullins's esophagus (Acute) Past Medical History Medical History Arrhythmia Hiatal hernia Glaucoma History of alcohol abuse Constipation BPH (benign prostatic hyperplasia) GERD (gastroesophageal reflux disease) Hypertension Tubular adenoma of colon Mullins's esophagus Family History Family History Father No problems noted. Mother No problems noted. Brother In good health Sister In good health Son In good health Family history of problems with anesthesia: No Surgical History Surgical History History of esophagogastroduodenoscopy (EGD) Hx of colonoscopy History of eye surgery History of Problems with Anesthesia: Yes (Slow awakening (2hrs) with fentanyl/versed for last endoscopy) Social History Social History Housing: House Are you a primary long term care social worker to a significant other at home: No Do you presently have visiting nurse or other home services: No Alcohol intake: former Comment: stopped since 1983 Patient Tobacco Use Status: Former Tobacco user Tobacco use type: Cigarette Years Smoked: stopped 1997 e-Cigarette/Vaping Use: Never Used Second Hand Smoke Exposure: Yes Use of substances other than those prescribed or required for medical reasons: No Are you DNR?: No Advance Directives: No Advance Directives Information Provided: Yes Poor oral hygiene: No service: No Current occupational status: retired Cognitive needs: No Hearing needs: No Vision needs: Yes Meds Allergies Allergy/AdvReac Type Severity Reaction Status Date / Time amlodipine Allergy Unknown Unknown Verified 10/14/23 10:55 metoprolol Allergy Unknown Unknown Verified 10/14/23 10:55 lisinopril AdvReac Intermediate cough Verified 10/14/23 10:55 Active Medications: Current Medications Lactated Ringer's (Lr) 1,000 mls @ 100 mls/hr IVCONT .Q10H FEROZ Home Medications ?Medication ?Instructions ?Recorded ?Confirmed ?Last Taken ?Type ascorbate calcium (vitamin C) 500 500 mg PO DAILY 05/07/23 05/07/23 Unknown History mg tablet cholecalciferol (vitamin D3) 25 25 mcg PO DAILY 05/07/23 05/07/23 Unknown History mcg (1,000 unit) capsule melatonin 10 mg capsule 10 mg PO BEDTIME PRN 05/07/23 05/07/23 Unknown History multivitamin 1 tab PO DAILY 05/07/23 10/10/23 Unknown History Exam Height,Weight and Vital Signs: Height 5 ft 10 in Weight 74.843 kg Last Vital Signs Temp 98.9 F 10/14/23 11:16 Pulse 74 10/14/23 11:16 Resp 16 10/14/23 11:16 BP 132/71 10/14/23 11:16 Pulse Ox 94 10/14/23 11:16 O2 Del Method Room Air 10/14/23 11:16 Airway Mallampati Class: II TM Dist: >3cm Neck ROM: Limited Heart: rrr Lungs: cta Assessment and Plan Assessment Anesthesia Assessment: Anesthesia Plan Discussed Final Anesthetic Review Family History of Problems with Anesthesia: No History of Problems with Anesthesia: Yes (Slow awakening (2hrs) with fentanyl/versed for last endoscopy) NPO: Yes ASA Class: III Final Preanesthetic Review: No Changes in Pt Med Stat, Meds/Allgs Chart Reviewed, Consent Obtained/Reviewed and Anes Risks/Benef Reviewed Patient Risk: Intermediate Procedure Risk: Low Anesthetic Plan Anesthetic Plan: MAC: Disposition: Standard PACU
[2023-10-14] MEDS: Lactated Ringers 1,000 ML 100 ML IVCONT (12:01)
[2023-10-14 12:25] VITALS: BP 110/61; PULSE 66; RESP 12; TEMP 36.6; O2SAT 94
--- NOTE | 2023-10-14 12:30 | P.BOP_ITS ---
Brief Operative Note Date of Service: 10/14/23 Pre-op diagnosis: Mullins's esophagus Post-op diagnosis: other (Same, Hiatal hernia) Procedure: EGD with biopsies and Kyle study Surgeon: Jose C Quinonez MD Anesthesia: MAC Was an Mission Worker used for this Procedure?: No Estimated blood loss (mL): 2.0 Pathology: other (A. Esophagus 33-34cm) Condition: stable Disposition: PACU
[2023-10-14 12:39] VITALS: BP 112/65; PULSE 65; RESP 16; O2SAT 96
--- NOTE | 2023-10-14 12:42 | OP_ITS ---
DATE OF SERVICE: 10/14/2023 SURGEON: Jose C Quinonez MD INDICATIONS: The patient presents for evaluation of gastroesophageal reflux and history of Mullins esophagus. Full consent has been obtained from him for this, including risks of bleeding and perforation. PREOPERATIVE DIAGNOSIS: POSTOPERATIVE DIAGNOSIS: PROCEDURE PERFORMED: Esophagogastroduodenoscopy with biopsies. ESTIMATED BLOOD LOSS: COMPLICATIONS: ANESTHESIA: Monitored anesthesia care. ASSISTANTS: SPECIMENS: PREOPERATIVE DIAGNOSES: Mullins esophagus and gastroesophageal reflux. POSTOPERATIVE DIAGNOSES: Mullins esophagus, gastroesophageal reflux, and hiatal hernia. DESCRIPTION OF PROCEDURE: The patient was placed in the left lateral decubitus position. The Olympus video gastroscope was passed in the posterior oropharynx and upper esophagus under direct vision. The scope was passed slowly into the distal esophagus. The gastroesophageal junction appeared at 34 cm. Extending from this to 33 cm, were 2 segments of Mullins's-appearing mucosa. There was no overlying esophagitis nor any lesions. The scope entered the stomach. There was a moderate-sized hiatal hernia. The scope was advanced to the pylorus and the duodenum was cannulated to the descending portion. The duodenum including the bulb appeared normal without mass or ulceration. The scope was withdrawn back to the stomach. The gastric antrum and body appeared normal with good peristalsis. The scope was retroflexed, visualizing the proximal stomach carefully, which appeared normal, without any sign of mass or ulceration. The scope was straightened and withdrawn back to the esophagus. Multiple biopsies were obtained between 33 and 34 cm in the 2 segments of Mullins mucosa. The specimen was also sent for a Cypher study. Proximal to 33 cm, the esophageal mucosa appeared normal. The scope was withdrawn from the patient. He tolerated the procedure well and was returned to the recovery area in stable condition. IMPRESSION: 1. History of Mullins esophagus. 2. Hiatal hernia. PLAN: The patient will continue his 40 mg dose of omeprazole as he reports that is working better than the 20 mg. If there is no dysplasia seen on today's biopsies, then I do not think we will need any further upper endoscopies given his age of 78. He will theoretically be due for another colonoscopy in 2 years as long as he is stable from a clinical standpoint. MD WALI HillW/GARTHL / [phone]
[2023-10-14 12:55] VITALS: BP 129/79; PULSE 63; RESP 16; TEMP 36.2; O2SAT 97
== END 2023-10-14 13:40 | disposition home or self-care (01) ==
PROVIDERS: PCP Internal Medicine; Visit Provider Internal Medicine
PROC: 0DJ08ZZ Inspection of Upper Intestinal Tract, Via Natural or Artificial Opening Endoscopic (ICD-10-PCS; CPT 43235; principal; 2023-10-14 11:30)
DX: K22.70 Barrett's esophagus without dysplasia (principal); K21.9 Gastro-esophageal reflux disease without esophagitis; K44.9 Diaphragmatic hernia without obstruction or gangrene; I10 Essential (primary) hypertension; H40.9 Unspecified glaucoma; N40.0 Benign prostatic hyperplasia without lower urinary tract symptoms; Z79.899 Other long term (current) drug therapy; Z88.8 Allergy status to other drugs, medicaments and biological substances; Z87.891 Personal history of nicotine dependence; Z98.890 Other specified postprocedural states
CPT/HCPCS: 43239; 88305; 93005; J2250; J2704

== ENCOUNTER 2023-11-04 08:28 | Outpatient (REF) | payer OTHER, SELFPAY ==
[2023-11-04 08:55] LABS: MANUAL DIFF FLAG NO
[2023-11-04 09:46] LABS: Basophils Percent Auto 0.8 % (0-2); Eosinophils Absolute Auto 0.2 X10*3/uL (0.0-0.4); Eosinophils Percent Auto 3.2 % (0-4); Hematocrit 41.5 % (42.0-52.0); Hemoglobin 14.4 g/dl (14.0-18.0); Imm Gran Abs Auto 0.02 X10*3/uL (0.00-0.03); Imm Gran Pct Auto 0.4 % (0.0-0.4); Lymphocytes Absolute Auto 1.2 X10*3/uL (1.2-4.9); Lymphocytes Percent Auto 23.7 % (20-40); Mean Corpuscular HGB Conc 34.7 g/dl (31.0-36.0); Mean Corpuscular Hemoglobin 31.9 pg (27.0-33.0); Mean Platelet Volume 9.4 fL (9.4-12.4); Monocytes Absolute Auto 0.7 X10*3/uL (0.1-1.2); Monocytes Percent Auto 12.9 % (2-11); Platelet Count 243 X10*3/uL (160-400); Red Blood Count 4.51 X10*6/uL (4.60-5.80); Red Cell Distribution Width 12.9 % (11.0-16.0)
[2023-11-04 10:31] LABS: Alanine Aminotransferase 18 U/L (0-40); Albumin Level 3.8 g/dL (3.5-5.0); Alkaline Phosphatase 69 U/L (39-117); Anion Gap 10 (12-20); Aspartate Amino Transferase 18 U/L (5-37); Bilirubin Total 0.8 mg/dL (0.0-1.0); Blood Urea Nitrogen 17 mg/dL (9-16); Calcium 9.4 mg/dL (8.4-10.2); Carbon Dioxide 30 mmol/L (22-29); Chloride 103 mmol/L (96-108); Cholesterol 197 mg/dL (<200); Estimated Glomerular Filt Rate 55; Glucose Random 97 mg/dL (60-115); HDL Cholesterol 57 mg/dL (>40); LDL Cholesterol Calculated 119 mg/dL (<100); Potassium 3.4 mmol/L (3.3-5.1); Sodium 140 mmol/L (135-145); Total Protein 6.6 g/dL (6.5-8.0); Triglycerides 106 mg/dL (<150)
[2023-11-04 10:53] LABS: Folate > 20.0 ng/mL (> or = 4.0); Prostate Specific Antigen Scr 1.98 ng/mL (<0.05-4.0); Vitamin B12 619 pg/mL (200-900)
[2023-11-04 10:55] LABS: Free T4 (Free Thyroxine) 0.97 ng/dL (0.71-1.85); Thyroid Stimulating Hormone 1.29 uIU/mL (0.32-4.0)
== END 2023-11-04 08:29 | disposition home or self-care (01) ==
LOC: HO.LAB 08:28
PROVIDERS: PCP Internal Medicine; Visit Provider Internal Medicine
DX: I10 Essential (primary) hypertension (principal); E78.00 Pure hypercholesterolemia, unspecified; Z12.5 Encounter for screening for malignant neoplasm of prostate
CPT/HCPCS: 36415; 80053; 80061; 82607; 82746; 84153; 84439; 84443; 85025

== ENCOUNTER 2024-03-10 15:13 | Outpatient (AMB) | payer OTHER, SELFPAY ==
[2024-03-10 15:16] VITALS: BP 118/74; PULSE 90; TEMP 36.6; O2SAT 98; BMI 25.4
--- NOTE | 2024-03-10 15:16 | AM.OFFWIN_ITS ---
Intake Vital Signs 03/10/24 15:16 Height 5 ft 10 in Weight 177 lb 4 oz BMI 25.4 BP 118/74 Blood Pressure Location Lt brachial Position Sitting Pulse 90 Pulse Source Pulse Oximeter Temp 97.8 F Temp Source Oral Pulse Oximetry (%) 98 Oxygen Delivery Method Room Air Intake Visit Reasons: EP swollen RT eye Intake Note: Pt presents to the office today for c/o a swollen right eye that started this morning when he woke. Pt denies any discharge,or pain. Patient Tobacco Use Status: Former Tobacco user Allergies amlodipine Allergy (Intermediate, Verified 03/10/24 15:21) swollen ankles metoprolol Allergy (Unknown, Verified 03/10/24 15:21) Unknown lisinopril Adverse Reaction (Intermediate, Verified 03/10/24 15:21) cough HPI HPI Comments History of Present Illness Details This is a 78-year-old male with a past medical history of BPH, hayfever, glaucoma and hypertension presenting for evaluation of swelling of his right eye that he 1st noticed this morning. Patient denies any injury or trauma preceding the onset of his symptoms and also denies any visual changes or discharge from the right eye. Patient states that the swelling is not painful and he use an ice pack this morning which somewhat alleviated the swelling. Patient denies any new exposures including pets, environmental exposures, new medications or topical creams/lotions/soaps. [facility] Medical History Arrhythmia Hiatal hernia Glaucoma History of alcohol abuse Constipation BPH (benign prostatic hyperplasia) GERD (gastroesophageal reflux disease) Hypertension Tubular adenoma of colon Mullins's esophagus Surgical History History of esophagogastroduodenoscopy (EGD) Hx of colonoscopy History of eye surgery Family History Father No problems noted. Mother No problems noted. Brother In good health Sister In good health Son In good health Social History Housing: House Are you a primary home care nurse to a significant other at home: No Do you presently have visiting nurse or other home services: No Alcohol intake: former Comment: stopped since 1983 Patient Tobacco Use Status: Former Tobacco user Tobacco use type: Cigarette Years Smoked: stopped 1997 e-Cigarette/Vaping Use: Never Used Second Hand Smoke Exposure: Yes service: No Current occupational status: retired Cognitive needs: No Hearing needs: No Vision needs: Yes Review of Systems Const All systems reviewed & are unremarkable except as noted in HPI and below Eyes Reports no additional complaints and Reports other (swelling upper and lower right eyelid) ENT Reports no additional complaints Card Reports as per HPI and Reports no additional complaints Resp Reports no additional complaints GI Reports no additional complaints Reports as per HPI Musc Reports no additional complaints Skin/Breast Reports system reviewed and no additional complaints, except as documented Neuro Reports no additional complaints Psych Reports no additional complaints Endo Reports no additional complaints Albin/Lymph Reports no additional complaints Aller/Immun Reports no additional complaints Physical Exam Vital Signs: Last Vital Signs Temp 97.8 F 03/10/24 15:16 Pulse 90 03/10/24 15:16 BP 118/74 03/10/24 15:16 Pulse Ox 98 03/10/24 15:16 Oxygen Delivery Method Room Air 03/10/24 15:16 BMI result Body Mass Index 25.4 Const General: cooperative, healthy appearing, comfortable, no acute distress, well developed, alert, awake and Physically active; No lethargic Nutritional Appearance: average body habitus Orientation/consciousness: patient oriented x3 and No lethargic Limitations: no limitations HEENT Head: Yes normal to inspection and Yes normocephalic Ears: hearing grossly normal bilaterally General nose exam: Normal external nose present Face and sinus: Yes normal facial exam Eyes Alignment and Position: alignment normal Periorbital: periorbital findings abnormal (edema of R. upper/lower eyelid, mild erythema upper eyelid lateral aspect) right periorbital swelling and periorbital erythema; no tenderness, no ecchymosis and no crepitus Eyelids: Yes eyelid abnormality Conjunctivae: conjunctivae normal Pupils: Equal, round and reactive pupils present EOM: EOMs intact bilaterally Direct Ophthalmoscopy: no photophobia Neuro General: patient oriented x3 Cranial nerves: Yes Equal, round and reactive pupils present Psych Appearance: grossly normal Mental Status: mental status grossly normal Insight: Good insight present (Psych) Judgement: Good judgement present (Psych) Assessment & Plan Assessment & Plan (1) Periorbital cellulitis of right eye: Comment: Patient's history coupled with his examination is concerning for an evolving periorbital cellulitis. Code(s): L03.213 - Periorbital cellulitis Plan: Augmentin b.i.d. x7 days, strict return precautions are reviewed; patient will return to urgent care on Saturday if his symptoms have worsened. Medications: New amoxicillin-pot clavulanate 500-125 mg (Augmentin) 1 tab PO Q12H 14 tabs 0RF Coding Level of Care Code Est Pt Level 3 (66119) Diagnoses Periorbital cellulitis of right eye L03.213 Time Spent (min) 20
== END 2024-03-10 15:56 | disposition home or self-care (01) ==
PROVIDERS: PCP Internal Medicine; Visit Provider Physician Assistant
DX: L03.213 Periorbital cellulitis (principal)

== ENCOUNTER → 2024-03-10 15:13 | Outpatient (BNVA) | payer OTHER, SELFPAY | PROVIDERS: PCP Internal Medicine; Visit Provider Physician Assistant ==

== ENCOUNTER 2024-05-12 15:47 | Outpatient (AMB) | payer OTHER, SELFPAY ==
--- NOTE | 2024-05-12 15:50 | MHC.PC.OV ---
Vital Signs 05/12/24 15:54 Height 5 ft 10 in Weight 177 lb 2 oz BMI 25.4 BP 118/66 Blood Pressure Location Lt brachial Position Sitting Pulse 70 Pulse Source Pulse Oximeter Temp 97.3 F Temp Source Temporal Artery Scan Pulse Oximetry (%) 97 Oxygen Delivery Method Room Air Intake Visit Reasons: annual exam Intake Note: Patient is here today for a physical. Social Work Instructor Required: No Eddy Current Inspector: Not Required per policy Accompanied by: Self / Same As Patient Allergies amlodipine Allergy (Intermediate, Verified 05/12/24 15:58) swollen ankles metoprolol Allergy (Unknown, Verified 05/12/24 15:58) Unknown lisinopril Adverse Reaction (Intermediate, Verified 05/12/24 15:58) cough Medication List - Last Reconciled 05/12/24 by KAYLI Bautista-C ascorbate calcium (vitamin C) 500 mg PO DAILY cholecalciferol (vitamin D3) 25 mcg PO DAILY finasteride 5 mg PO DAILY hydrochlorothiazide 25 mg PO DAILY loratadine 10 mg PO DAILY losartan 25 mg PO DAILY multivitamin 1 tab PO DAILY omeprazole 40 mg PO DAILY tamsulosin 0.4 mg PO DAILY Tobacco use date assessed: 05/12/24 Fall risk assessment: No Falls in past year Last assessed Fall Risk: 05/12/24 Dental Screening Dental Screen Date: 05/12/24 Did you have a dental visit in the last 12 months?: Yes Did you have a dental problem in the last 6 months where you did not have access to dental care?: No Was dental information given to patient?: Patient has dentist HPI annual exam HPI Details 79-year-old male with past medical history of hypertension, Mullins's esophagus, BPH, renal insufficiency last seen 04/[address] Sampson coming in for annual exam.?In review of the notes, patient had endoscopy completed 10/[address] Quinonez which revealed Barretts esophagus and hiatal hernia advised to continue on omeprazole 40 mg and repeat colonoscopy in 2 years. He is also recently treated by the walk-in clinic for periorbital cellulitis. - Hypertension: Managed with HCTZ, paused due to a rise to 169/70, and resumed, now stable at 118/66. - February eye infection treated with Augmentin has resolved, no current vision issues. - Mullins?s Esophagus: Managed with 40 mg omeprazole, minimal present issues with reflux. - Arrhythmia: Known condition without major issues on prior EKGs. - Benign Prostatic Hyperplasia, symptoms controlled with medication, experiencing moderate nocturia. Follows with Urology routinely and we will see them next week. - Long-standing eczema, using Dermasil as a management cream. PSA: Ordered for updated blood work Colonoscopy: Up-to-date plan to repeat in 2 years Advanced Directives: HCP and MOLST forms given today [facility] Medical History Arrhythmia Hiatal hernia Glaucoma History of alcohol abuse Constipation BPH (benign prostatic hyperplasia) GERD (gastroesophageal reflux disease) Hypertension Tubular adenoma of colon Mullins's esophagus Surgical History History of esophagogastroduodenoscopy (EGD) Hx of colonoscopy History of eye surgery Family History Father No problems noted. Mother No problems noted. Brother In good health Sister In good health Son In good health Social History Housing: House Are you a primary adult caregiver to a significant other at home: No Do you presently have visiting nurse or other home services: No Alcohol intake: former Comment: stopped since 1983 Patient Tobacco Use Status: Former Tobacco user Tobacco use type: Cigarette Years Smoked: stopped 1997 e-Cigarette/Vaping Use: Never Used Second Hand Smoke Exposure: Yes service: No Current occupational status: retired Cognitive needs: No Hearing needs: No Vision needs: Yes Questionnaire PHQ-9 Over the last 2 weeks, how often have you been bothered by any of the following problems? 1. Little interest or pleasure in doing things: not at all 2. Feeling down, depressed, or hopeless: not at all 3. Trouble falling or staying asleep, or sleeping too much: not at all 4. Feeling tired or having little energy: not at all 5. Poor appetite or overeating: not at all 6. Feeling bad about yourself - or that you are a failure or have let yourself or your family down: not at all 7. Trouble concentrating on things, such as reading the newspaper or watching television: not at all 8. Moving or speaking so slowly that other people could have noticed. Or the opposite - being so fidgety or restless that you have been moving around a lot more than usual: not at all 9. Thoughts that you would be better off or of hurting yourself in some way: not at all Total score: 0 Depression Screening Interpretation: Negative Depression Screening Done: Yes Source: Developed by Drs. Jose C Nesbitt, Yanique Felton, Toi Gutiérrez and colleagues, with an educational radha from [employer]. Thrive Questionnaire Date Thrive assessed: 05/06/24 I am a: Patient What is your living situation today?: I have a steady place to live Within the past 12 months, did the food you bought not last and you didn't have the money to get more?: Never true Within the past 12 months, did you worry whether your food would run out before you got money to buy more?: Never true Do you have trouble paying for medicines?: No Do you have trouble getting transportation to medical appointments?: No Do you have trouble paying your heating and electricity bill?: No Do you have trouble taking care of your child, family member or friend?: No Do you have trouble with day-to-day activities such as bathing, preparing meals, shopping, managing finances, etc.?: No Are you currently unemployed and looking for a job?: No Are you interested in more education?: No Please select the resources that you would like help with: None Currently or been in a relationship where the following occur: No concerns reported THRIVE Score: 0 AUDIT C Alcohol Use Questionnaire (AUDIT-C) 1. How often do you have a drink containing alcohol?: Never 3. How often do you have six or more drinks on one occasion?: Never Total Score: 0 NAWAF-7 AMB Questionnaire NAWAF-7 Date NAWAF - 7 assessed: 05/12/24 Feeling nervous, anxious, or on edge: 0 = Not at all Not being able to stop or control worryin = Not at all Worrying too much about different things: 0 = Not at all Trouble relaxin = Not at all Being so restless that it is hard to sit still: 0 = Not at all Becoming easily annoyed or irritable: 0 = Not at all Feeling afraid as if something awful might happen: 0 = Not at all Total NAWAF-7 score (0-4 normal; 5-9 mild; 10-14 moderate; 15-21 severe): 0 Source: Developed by Drs. Jose C Nesbitt, Yanique Felton, Toi Gutiérrez and colleagues, with an educational radha from [employer]. Review of Systems Const Denies body aches, Denies chills, Denies fever(s), Denies headache(s) and Denies poor appetite Eyes Reports no additional complaints ENT Denies dysphagia, Denies dizziness, Denies headache(s) and Denies odynophagia Card Denies chest pain, Denies syncope, Denies edema, Denies irregular heart rhythm, Denies lightheadedness and Denies dyspnea Resp Denies cough and Denies dyspnea GI Denies abdominal pain, Denies constipation, Denies dysphagia, Denies diarrhea, Denies nausea, Denies odynophagia and Denies vomiting Reports no additional complaints Musc Reports no additional complaints and Denies abnormal gait Skin/Breast Reports system reviewed and no additional complaints, except as documented Neuro Denies abnormal gait, Denies dizziness, Denies syncope and Denies headache(s) Psych Reports no additional complaints Physical exam (Primary Care) Tobacco/Smoking Status: Tobacco use Status Tobacco use date assessed 05/07/23 05/12/24 15:50 Patient Tobacco Use Status Former Tobacco user 05/12/24 15:50 Tobacco use type Cigarette 05/12/24 15:50 e-Cigarette/Vaping Use Never Used 05/12/24 15:50 PHQ-9: PHQ-9 Score PHQ-9: Total score 0 05/12/24 15:50 Depression Screening Interpretation: Negative Thrive Assessment: Date of Thrive Assessment Date Thrive assessed 05/06/24 05/12/24 15:50 Currently or been in a relationship where the following occur: No concerns reported Forms completed: Health Care Proxy and MOLST Time spent: 1-15 minutes, not on file Actual minutes spent: 5 Const General: cooperative, healthy appearing, comfortable and no acute distress Orientation/consciousness: patient oriented x3 HENMT Head: Yes normocephalic Ears: hearing grossly normal bilaterally, external ears normal, TM's normal bilaterally and EAC's normal General nose exam: Normal external nose present Face and sinus: Yes normal facial exam and Yes sinuses nontender Mouth: Normal oral and palatal mucosa present and tongue normal Throat: Yes posterior oropharynx normal Eyes General: appearance normal, both eyes and all related structures Conjunctivae: conjunctivae normal Pupils: Equal, round and reactive pupils present EOM: EOMs intact bilaterally and No Nystagmus present Neck Neck: Yes normal visual inspection, Yes full ROM and Yes no lymphadenopathy Chest Chest palpation & inspection: normal inspection of the chest Resp Effort & Inspection: normal respiratory effort Auscultation: clear to auscultation bilaterally, no crackles, no rales, no rhonchi, no wheezes and breath sounds present Cardio Rate: regular rate Rhythm: regular rhythm Peripheral pulses: radial pulses present and dorsalis pedis present GI Inspection: Yes normal to inspection and No Abdominal wall edema Palpation (GI): Soft to palpation, not firm and nontender Auscultation: normal bowel sounds Rectal Exam - Male: Yes deferred General: Yes no CVA tenderness Back/Spine/Pelvis Back: no CVA tenderness Skin General skin exam: no rashes or lesions noted Neuro General: patient oriented x3 Cranial nerves: Yes Equal, round and reactive pupils present, Yes Midline tongue present, Yes Ability to bilaterally elevate shoulders present and No Nystagmus present Gait exam (Neuro): Normal gait present Extrem General: Yes normal to inspection, Yes full ROM, No no pedal edema and No edema Psych Speech and movement: Normal speech and movement present Affect: normal affect Insight: Good insight present (Psych) Judgement: Good judgement present (Psych) Coding Level of Care Code Est Pt Prev Care >65y(38503) Diagnoses Essential hypertension I10 Hypertension type: essential hypertension Mullins's esophagus without dysplasia K22.70 Mullins's esophagus type: without dysplasia Benign prostatic hyperplasia with urinary frequency N40.1; R35.0 Lower urinary tract symptom presence: symptoms present Lower urinary tract symptom detail: urinary frequency Annual physical exam Z00.00 Renal insufficiency N28.9 Arrhythmia I49.9 Additional Codes Vital Signs *Quality* - Time spent: 1-15 minutes, not on file ([id number]) Assessment & Plan Assessment & Plan (1) Hypertension: Code(s): I10 - Essential (primary) hypertension Category: Medical Qualifiers: Hypertension type: essential hypertension Qualified Code(s): I10 - Essential (primary) hypertension Plan: Continue on current blood pressure medication. Avoid salt intake and encourage healthy diet and regular exercise. (2) Mullins's esophagus: Code(s): K22.70 - Mullins's esophagus without dysplasia Category: Medical Qualifiers: Mullins's esophagus type: without dysplasia Qualified Code(s): K22.70 - Mullins's esophagus without dysplasia Plan: Patient completed recent endoscopy consistent with Mullins's esophagus. Avoid trigger foods such as citrus, tomato products, soda, caffeine, spicy foods and other foods that may be irritating to your stomach. Avoid laying flat 3-4 hours after eating and elevate the head of the bed 30 degrees to prevent acid from moving into the esophagus. Continue on omeprazole 40 and continue to follow with GI (3) BPH (benign prostatic hyperplasia): Comment: / Larry 03/2020 Code(s): N40.0 - Benign prostatic hyperplasia without lower urinary tract symptoms Category: Medical Qualifiers: Lower urinary tract symptom presence: symptoms present Lower urinary tract symptom detail: urinary frequency Qualified Code(s): N40.1 - Benign prostatic hyperplasia with lower urinary tract symptoms; R35.0 - Frequency of micturition Plan: Continue on tamsulosin 0.4 mg and finasteride 5 mg daily. Ordered for repeat PSA (4) Annual physical exam: Code(s): Z00.00 - Encounter for general adult medical examination without abnormal findings Category: Medical Plan: Patient is up-to-date on all recommended routine screenings and vaccinations for his age. Blood work is ordered for 6 months. Healthcare proxy form and MOLST form were discussed at today's visit and given to patient to complete at home and bring in to next visit or sooner. Plan to follow up yearly or sooner if new problems arise (5) Renal insufficiency: Code(s): N28.9 - Disorder of kidney and ureter, unspecified Category: Medical Plan: Continue to monitor blood work. Avoid kidney irritants such as NSAIDs and stay well hydrated. (6) Arrhythmia: Code(s): I49.9 - Cardiac arrhythmia, unspecified Category: Medical Plan: Arrhythmia noted on exam patient has had multiple EKGs in the past has been stable consistent with sinus arrhythmia. Continue to monitor at this time. Patient is asymptomatic. Plan This note was constructed using voice recognition software. While every effort has been made to ensure accuracy and control manager, still areas may have been included sometimes these areas may affect the content or meeting of the given symptoms. Total time spent caring for the patient today was thirty minutes. This includes time spent before the visit reviewing the chart, time spent during the visit, and time spent after the visit and documentation. Patient was informed and verbally consented to the use of an ambient scribe for clinic note documentation during this visit. Orders: Orders Vitamin D 25-OH Total Today Z00.00 - Encounter for general adult medical examination without abnormal findings Vitamin B12 and Folate Today Z00.00 - Encounter for general adult medical examination without abnormal findings Comprehensive Met. Panel Today Z00.00 - Encounter for general adult medical examination without abnormal findings Lipid Panel Today E78.00 - Pure hypercholesterolemia, unspecified TSH reflex Free T4 Today Z00.00 - Encounter for general adult medical examination without abnormal findings Free T4 (Free Thyroxine) Today Z00.00 - Encounter for general adult medical examination without abnormal findings Complete Blood Count Auto Diff Today Z00.00 - Encounter for general adult medical examination without abnormal findings Medications: Discontinued omeprazole Discontinued Reason: Patient no longer taking 20 mg PO DAILY 90 caps 2RF
[2024-05-12 15:54] VITALS: BP 118/66; PULSE 70; TEMP 36.3; O2SAT 97; BMI 25.4
--- OUTSIDE RECORDS SUMMARY | 2024-05-12 19:33 | XMS_ITS | Patient Health Record ---
Author Organization [facility] Address [address] [place] [address] Care Team Providers Care Phone Counselor Name Role Phone Don Sampson MD Primary Care Provider Jose C Waterman [phone] Allergies No Known Allergies Results Component Value Reference Range Notes Pathology Reviewed date:02/12/2024 11:26:21 PM Interpretation: Performing Lab:[facility], [address] [place] [id number] Notes/Report: Name: Olegario Luis Age/Sex: 78/M : 1945 Unit#: [id number] Attend Dr: Jose C Quinonez MD Re10/14/23 Status : [facility] Location: [facility] Disch: SPEC : [id number] RECD : 10/14/23 STATUS: JONATHAN MCMAHON NUM: [id number] ZAKIYA: 10/14/23-[address] [facility] [address]: Jose C Quinonez MD ENTERED: 10/14/23 56 SP TYPE: Surgical OTHR DR: Don Sampson MD ORDERED: Gross Micro L4, Eso bx BA w/exc COMMENTS: 8 unstaine d slides sent to surespot for TissueCypher on 10/15/23. Addendum Addendum 1 Entered: 11/29/23 TissueCypher: Risk c lass LOW; risk score 1.3 See report in its en tirety in the EMR - Reports/Pathology section as a scanned report (camera icon). If ap propriate, a copy has also been sent to the ordering provider's office. 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 - No dysplasia seen. - Squamous mucosa wi thin normal limits. Comment: TissueCyphe r results will be addended. Clinical History Pre-Op Dx: Mullins's, reflux Post-Op Dx: Mullins's, GERD Microscopic Description Microscopic sections reviewed. Material Received A. Esophagus 33-34 CONTINUED ON NEXT PAGE Name: Olegario Luis Age/Sex: 78/M : 1945 Unit#: [id number] Attend Dr: Jose C Quinonez MD Re10/14/23 Status : [facility] Location: [facility] Disch: SPEC : [id number] RECD : 10/14/23-1245 STATUS: LEAMichele MCMAHON NUM: [id number] ZAKIYA: 10/14/23-[address] [facility] [address]: Jose C Quinonez MD ENTERED: 10/14/23-12 56 SP TYPE: Surgical OTHR DR: Don Sampson MD ORDERED: Gross Micro L4, Eso bx BA w/exc COMMENTS: 8 unstaine d slides sent to surespot for TissueCypher on 10/15/23. Gross Description Received in formalin labeled ?esophagus 33-34, history of Mullins's? are 4 fragments of pink white soft tissue me asuring 0.3-0.4 cm in greatest dimension which are wrapped in lens paper and entirely submitt ed for microscopic examination, 4 pieces in cassette [facility] Copies To: Don Sampson MD [facility] [place] [address] [place], [place] [id number] Jose C Quinonez MD [facility] [address] [place] [address] Signed (si gnature on file) Juan Damico MD 10/15/23 0958 END OF REPORT Reason For Referral No Information Medications Medication SIG (Take, Route, Frequency, Duration) Notes Start Date End Date Status hydroCHLOROthiazide 25 MG as directed Or ally Once a day Active Omeprazole 20 MG 1 capsule 30 minutes before morning meal Orally Once a day Active Losartan Potassium 25 MG TAKE 1 TABLET B Y MOUTH ONCE A DAY.. Oral for 30 Active Finasteride 5 MG 1 tablet Orally Once a day for 30 day(s) Active Tamsulosin HCl 0.4 MG 1 capsule Orally O nce a day Active Loratadine 10 MG TAKE ONE TABLET BY MOUTH EVERY DAY Oral for 90 Active Lisinopril Unknown Omeprazole 40 MG TAKE ONE CAPSULE BY MOUTH EVERY DAY IN THE MORNING for 30 Active Fish Oil 1000 MG 1 capsule Orally Onc e a day for 30 day(s) Not-Taking Multivitamin - 1 tablet Orally Once a day for 30 day(s) Active Immunizations Vaccine Route Administration Date Status Comme nts Influenza Unknown 11/18/2018 Administered Influenza Unknown 06/26/2023 Refused Social History Tobacco Use: Social History Observation Description Date Details (start date - stop date) Former Smoker NA - NA Tobacco Use/Smoking Question Answer Notes Patient is a former smoker When did you stop smoking? 21 years ago How long has it been since you last smoked? 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9) Active confirmed Problem 471372296 Gastroesophageal reflux disease, esophagitis presence not specified (K21.9) Active confirmed Problem 01032684 Heme + stool (R19.5) Active confirmed Problem Mullins esophagus (000474157) 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) Active confirmed Problem Mullins's esophagus (623502007) Mullins''s esophagus without dysplasia (K22.70) Active confirmed Problem Gastroesophageal reflux disease (091334771) Chronic GERD (K21.9) Active confirmed Vital Signs Temperature 97.7 degrees Fahrenheit 06/26/2023 Blood pressure diastolic 00 mm Hg 06/26/2023 Height 70 in 06/26/2023 Blood pressure systolic 000 mm Hg 06/26/2023 Weight 172 lbs 06/26/2023 BMI 24.68 kg/m2 06/26/2023 Encounters Encounter Location Date Provider Diagnosis [facility] Outpatient [address] [place] [phone] 10/14/2023 Jose C Quinonez Mullins esophagus K2 2.70 ; Gastroesophageal reflux disease K21.9 and Hiatal hernia K44.9 [facility] [address] [facility] [facility] [address] [place] [address] 06/26/2023 Jose C Quinonez Mullins''s esophagus without dysplasia K22.70 ; Chronic GERD K21.9 ; History of adenomatous polyp of colon Z86.010 and Encounter for screening for malignant neoplasm of colon Z12.11 Assessments Encounter Date Diagnosis (ICD Code) Assessment Notes Treatment Notes Treatment Clinical Notes Section Notes 10/14/2023 Gastroesophageal reflux disease (ICD-10 - K21.9) 10/14/2023 Mullins esophagus (ICD-10 - K22.70) 06/26/2023 Mullins''s esophagus without dysplasia (ICD-10 - K22.70) Overall, Olegario appears well. I did recommend a followup upper endoscopy for further surveillance in regard to his Mullins's esophagus as it has been over 3 years since his last procedure. Full consent was obtained from him for this, including risks of bleeding and perforation. The procedure will be done with monitored anesthesia care. Given his ongoing symptoms of heartburn despite the 20 mg omeprazole, I shall send over a prescription for 40 mg omeprazole for him to use instead. We did review that he should try not to eat for at least 2 or 3 hours before bedtime and to minimize any caffeine intake. We did review that he'll be due for a followup colonoscopy for further screening in 2025. Olegario was comfortable with this plan. Thank you again for allowing me to particulate in Olegario's care. I shall continue to keep you advised of this progress. 06/26/2023 Chronic GERD (ICD-10 - K21.9) Overall, Olegario appears well. I did recommend a followup upper endoscopy for further surveillance in regard to his Mullins's esophagus as it has been over 3 years since his last procedure. Full consent was obtained from him for this, including risks of bleeding and perforation. The procedure will be done with monitored anesthesia care. Given his ongoing symptoms of heartburn despite the 20 mg omeprazole, I shall send over a prescription for 40 mg omeprazole for him to use instead. We did review that he should try not to eat for at least 2 or 3 hours before bedtime and to minimize any caffeine intake. We did review that he'll be due for a followup colonoscopy for further screening in 2025. Olegario was comfortable with this plan. Thank you again for allowing me to particulate in Olegario's care. I shall continue to keep you advised of this progress. 10/14/2023 Hiatal hernia (ICD-10 - K44.9) 06/26/2023 History of adenomatous polyp of colon (ICD-10 - Z86.010) Overall, Olegario appears well. I did recommend a followup upper endoscopy for further surveillance in regard to his Mullins's esophagus as it has been over 3 years since his last procedure. Full consent was obtained from him for this, including risks of bleeding and perforation. The procedure will be done with monitored anesthesia care. Given his ongoing symptoms of heartburn despite the 20 mg omeprazole, I shall send over a prescription for 40 mg omeprazole for him to use instead. We did review that he should try not to eat for at least 2 or 3 hours before bedtime and to minimize any caffeine intake. We did review that he'll be due for a followup colonoscopy for further screening in 2025. Olegario was comfortable with this plan. Thank you again for allowing me to particulate in Olegario's care. I shall continue to keep you advised of this progress. 06/26/2023 Encounter for screening for malignant neoplasm of colon (ICD-10 - Z12.11) Overall, Olegario appears well. I did recommend a followup upper endoscopy for further surveillance in regard to his Mullins's esophagus as it has been over 3 years since his last procedure. Full consent was obtained from him for this, including risks of bleeding and perforation. The procedure will be done with monitored anesthesia care. Given his ongoing symptoms of heartburn despite the 20 mg omeprazole, I shall send over a prescription for 40 mg omeprazole for him to use instead. We did review that he should try not to eat for at least 2 or 3 hours before bedtime and to minimize any caffeine intake. We did review that he'll be due for a followup colonoscopy for further screening in 2025. Olegario was comfortable with this plan. Thank you again for allowing me to particulate in Olegario's care. I shall continue to keep you advised of this progress. Plan Of Treatment Future Test Test Name Order Date UPPER GI ENDOSCOPY 02/08/2016 COLONOSCOPY 02/08/2016 UPPER GI ENDOSCOPY 07/23/2019 COLONOSCOPY 07/23/2019 UPPER GI ENDOSCOPY 06/26/2023 Insurance Providers Payer Name Payer Address Payer Phone Subscriber Number Group Number Insured Name Patient Relationship to Insured Coverage Start Date Coverage End Date [facility] [address] [place] [phone] [id number] OLEGARIO LUIS Self - patient is the insured Medical (General) History Medical History History ICD Code GERD--upper endoscopy in Mar with the finding of a small area of Mullins's esophagus and a moderate-sized hiatal hernia--biopsies were negative for dysplasia and there was no esophagitis Denies ND,DM,CVA,Lung disease,renal dise ase HTN BPH Glaucoma Colonoscopy in March 2016 with removal of 3 tubular adenomas, one of which was about 1 cm with high grade dysplasia in the rectum EGD 04/2020--moderate sized h iatal hernia and small area of Mullins's esophagus, with biopsies negative for dysplasia. There was no esophagitis Colonoscopy 04/2020--2 small tubular marissa omas removed Surgical History Surgery Date(Month/Year) Right eye surgery-detached retina, catar act surgery 2020
--- OUTSIDE RECORDS SUMMARY | 2024-05-12 19:34 | XMS_ITS ---
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 [place] [address] [place] [phone] 10/14/2023 Jose C Quinonez Garrison esophagus K2 [...] OLEGARIO LUIS RDOB: [birth year] (79 yo M)Acc No.[id number]:10/14/2023 EGD/MAC Patient:?OLEGARIO LUIS Provider:Bere Quinonez MD :1945???Age:78 Y???Sex:Male Jonathan e:10/14/2023 Address:[address] [place], [place] [id number] Pcp:Don Sampson MD Subjective: * Chief Complaints: * ???1. Garrison's, gerd. * Medical History:? Objective: * Vitals:? Assessment: * Assessment: 1.?Garrison esophagus - K22.7 0 (Primary)???2.?Gastroesophageal reflux disease - K21.9???3.?Hiatal hernia - K44.9??? Plan: * Treatment: * Procedure Codes:?00528 UPPER GI ENDOSCOPY, BIOPSY, 3126F ESOPH BX RPRT W/DYSPL INFO * * The named appointment provid er may or may not be the originator of this progress note, and it is not deemed complete until electronically signed by the appointment provider. Sign off status: Pending * Provider:?Jose C Quinonez MD Date:? 024 Generated for Valeria duncan/Barbara/Eufemiasmitting on:?05/12/2024 07:33 PM EDT
--- OUTSIDE RECORDS SUMMARY | 2024-05-12 19:34 | XMS_ITS ---
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 Oral for 30 Active Tamsulosin HCl 0.4 MG 1 capsule Orally O nce a day Active Loratadine 10 MG TAKE ONE TABLET BY MOUTH EVERY DAY Oral for 90 Active Omeprazole 40 MG 1 Orally Every morni ng for 30 day(s) 06/26/2023 Active Finasteride 5 MG 1 tablet Orally Once a day for 30 day(s) Active Lisinopril Unknown Fish Oil 1000 MG 1 capsule Orally Onc e a day for 30 day(s) Not-Taking Multivitamin - 1 tablet Orally Once a day for 30 day(s) Active Immunizations Vaccine Route Administration Date Status Comme nts Influenza Unknown 06/26/2023 Refused Social History Tobacco Use: Social History Observation Description Date Details (start date - stop date) Former Smoker NA - NA Tobacco Use/Smoking Question Answer Notes Patient is a former smoker When did you stop smoking? 21 years ago How long has it been since you last smoked? 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 Problems Problem Type SNOMED Code ICD Code Onset Dates Problem Status W/U Status Risk Notes Problem Mullins's esophagus (002880167) Mullins''s esophagus without dysplasia (K22.70) Active confirmed Problem Gastroesophageal reflux disease (664031732) Chronic GERD (K21.9) Active confirmed Vital Signs Temperature 97.7 degrees Fahrenheit 06/26/19 24 Blood pressure systolic 000 mm Hg 06/26/19 24 Blood pressure diastolic 00 mm Hg 024 Height 70 in 06/26/2023 Weight 172 lbs 06/26/2023 BMI 24.68 kg/m2 06/26/2023 Encounters Encounter Location Date Provider Diagnosis [facility] [address] [place] [address] 06/26/2023 Jose C Quinonez Mullins''s esophagus without dysplasia K22.70 ; Chronic GERD K21.9 ; History of adenomatous polyp of colon Z86.010 and Encounter for screening for malignant neoplasm of colon Z12.11 Assessments Encounter Date Diagnosis (ICD Code) Assessment Notes Treatment Notes Treatment Clinical Notes Section Notes 06/26/2023 Mullins''s esophagus without dysplasia (ICD-10 - [...] keep you advised of this progress. 06/26/2023 History of adenomatous polyp of colon (ICD-10 - Z86.010) Overall, Olegario appears well. I did recommend a followup upper endoscopy for further surveillance in regard to his Mullisn's esophagus as it has been over 3 [...] advised of this progress. Plan Of Treatment Medication Medication Name Sig Start Date Stop Date Notes Omeprazole 40 MG 1 Orally Every morning for 30 day(s) 09/2023 Future Test Test Name Order Date UPPER GI ENDOSCOPY 06/26/2023 Next Appt Details Follow Up: prn, Reason: Progress Notes * OLEGARIO LUIS RDOB: [birth year] (78 yo M)Acc No.[id number]:06/26/2023 Progress Notes Patient:OLEGARIO AU Provider:?Jose C Quinonez MD :1945???Age:78 Y???Sex:Male Jonathan e:06/26/2023 Address:[address] [place] [address] Pcp:Don Sampson MD Subjective: * Chief Complaints: * ???Patient presents today fo r acid REFLUX * HPI: ???incontinence:? I saw Olegario in consultation today for further evaluation of his chronic gastroesophageal reflux and associated Mullins's esophagus, and his personal history of tubular adenomas of the colon. ?I last saw Olegario April of 2020, at which time he underwent a followup upper endoscopy and colonoscopy. His colonoscopy revealed 2 tubular adenomas that were removed. His upper endoscopy revealed is known moderate-sized hiatal hernia and areas of Mullins's esophagus. Biopsies from the Mullins's esophagus were negative for dysplasia. There was no esophagitis. ?Since those procedures she has been feeling well. He is to remain on omeprazole 20 mg daily but has been having intermittent episodes of heartburn both during the day and at night. These episodes will usually resolve with TUMS. He denies any dysphagia, anorexia, nausea, vomiting, nor early satiety. He denies abdominal pain, jaundice, nor weight loss. His bowel movements are regular and without any signs of bleeding. * ROS:?General/Constitutional:?Change in appetite?denies.?Chills?denies.?Fatigue?denies.?Ophthalmologic:?Comments?all negative.?ENT:?Comments?all negative.?Respiratory:?hemoptysis?denies.?Cough?denies.?Cardiovascular:?Chest pain?denies.?Orthopnea?denies.?Gastrointestinal:?Comments?See HPI for details.?Genitourinary:?Hematuria?denies.?Dysuria?denies.?Musculoskeletal:?Painful joints?denies.?Weakness?denies.?Skin:?Itching?denies.?Rash?denies.?Neurologic:?Headache?denies.?Seizures?denies.?Psychiatric:?Comments?all negative.? * Medical History:? * Surgical History:?Right eye surgery-detached retina, cataract surgery 2020 * Hospitalization/Major Diagno stic Procedure:?No Hospitalization History. * Family History:?Father: dece ased.?Mother: .? No colorectal cancer. No liver cancer. * Social History:?Tobacco Use:?Tobacco Use/Smoking?Patient is a?former smoker,?When did you stop smoking??21 years ago,?How long has it been since you last smoked??> 10 years.?Drugs/Alcohol:?Alcohol Screen?Points: 0, Interpretation: Negative.?Miscellaneous:?Marital status: . Occupation: retired. 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 * Medications:?TakinghydroCHLO ROthiazide 25 MG Tablet as directed Orally Once a dayOmeprazole 20 MG Capsule Delayed Release 1 capsule 30 minutes before morning meal Orally Once a dayTamsulosin HCl 0.4 MG Capsule 1 capsule Orally Once a dayLoratadine 10 MG Tablet TAKE ONE TABLET BY MOUTH EVERY DAY Oral Losartan Potassium 25 MG Tablet TAKE 1 TABLET BY MOUTH ONCE A DAY.. Oral Finasteride 5 MG Tablet 1 tablet Orally Once a dayMultivitamin - Tablet 1 tablet Orally Once a dayTaking hydroCHLOROthiazide 25 MG Tablet as directed Orally Once a dayTaking Omeprazole 20 MG Capsule Delayed Release 1 capsule 30 minutes before morning meal Orally Once a dayTaking Tamsulosin HCl 0.4 MG Capsule 1 capsule Orally Once a dayTaking Loratadine 10 MG Tablet TAKE ONE TABLET BY MOUTH EVERY DAY Oral Taking Losartan Potassium 25 MG Tablet TAKE 1 TABLET BY MOUTH ONCE A DAY.. Oral Taking Finasteride 5 MG Tablet 1 tablet Orally Once a dayTaking Multivitamin - Tablet 1 tablet Orally Once a dayNot-Taking/PRNFish Oil 1000 MG Capsule 1 capsule Orally Once a dayNot-Taking/PRN Fish Oil 1000 MG Capsule 1 capsule Orally Once a dayUnknownLisinopril Medication List reviewed and reconciled with the patientUnknown Lisinopril Medication List reviewed and reconciled with the patient * Allergies:?N.K.D.A.yes[Aller gies Verified] Objective: * Vitals:?Wt: 172 lbs, Ht: 70 in, BMI:24.68 Index, BP: 000/00 mm Hg, Temp: 97.7. * Examination: ???General Examination: ?GENERAL APPEARANCE:?pleasant, well nourished, well developed, in no acute distress.?EYES:?sclera non-icteric.?ORAL CAVITY:?mucosa moist.?NECK/THYROID:?no cervical lymphadenopathy, neck supple.?SKIN:?nonjaundiced, no spider angiomata.?HEART:?S1, S2 normal.?LUNGS:?clear to auscultation bilaterally.?ABDOMEN:?normal bowel sounds, no guarding or rigidity, no guarding or rigidity, no masses palpable, soft, nontender, nondistended.?EXTREMITIES:?no edema.?NEUROLOGIC:?alert and oriented.? Assessment: * Assessment: 1.?Mullins''s esophagus with out dysplasia - K22.70 (Primary)?2.?Chronic GERD - K21.9?3.?History of adenomatous polyp of colon - Z86.010?4.?Encounter for screening for malignant neoplasm of colon - Z12.11? Overall, Olegario Jimenez did recommend a followup upper endoscopy for [...] to keep you advised of this progress. Plan: * Treatment: 2.?Chronic GERD?Procedure: UPPER GI ENDOSCOPY (Ordered for 06/26/2023)* with MACsched for 10/14/23 at 11:30 am * Immunizations:? Influenza (Not administered - Refused: Patient decision) * Procedure Codes:?1036F TOBAC CO NON-NBITM9999 DOC RSN FOR NOT SCREEN/REC F/U HBP * Follow Up:?prn * * Sign off status: Completed true * Provider:?Jose C Quinonez MD Date:? 024 Generated for Valeria duncan/Barbara/eTransmitting on:?05/12/2024 07:33 PM EDT History and Physical Notes * HPI (History of Present Illness) Category Sub-Category Detail Notes Category Not es incontinence I saw Olegario in consultation today for further evaluation of his chronic gastroesophageal reflux and associated Mullins's esophagus, and his personal history of tubular adenomas of the colon. I last saw Olegario April of 2020, at which time he underwent a followup upper endoscopy and colonoscopy. His colonoscopy revealed 2 tubular adenomas that were removed. His upper endoscopy revealed is known moderate-sized hiatal hernia and areas of Mullins's esophagus. Biopsies from the Mullins's esophagus were negative for dysplasia. There was no esophagitis. Since those procedures she has been feeling well. He is to remain on omeprazole 20 mg daily but has been having intermittent episodes of heartburn both during the day and at night. These episodes will usually resolve with TUMS. He denies any dysphagia, anorexia, nausea, vomiting, nor early satiety. He denies abdominal pain, jaundice, nor weight loss. His bowel movements are regular and without any signs of bleeding. Examination Category Sub-Category Detail Notes Category Not es General Examination GENERAL APPEARANCE: pleasant , well nourished, well developed, in no acute distress HEAD: EYES: sclera non-icteric EARS: NOSE: THROAT: NECK/THYROID: no cervical lymphade nopathy, neck supple HEART: S1, S2 normal CHEST: LUNGS: clear to auscultatio n bilaterally ABDOMEN: normal bowel sounds, no guarding or rigidity, no guarding or rigidity, no masses palpable, soft, nontender, nondistended NEUROLOGIC: alert and oriented SKIN: nonjaundiced, no spi lashay angiomata EXTREMITIES: no edema PERIPHERAL PULSES: BACK: BREASTS: MUSCULOSKELETAL: MALE GENITOURINARY: LYMPH NODES: RECTAL EXAM: FEMALE GENITOURINARY: ORAL CAVITY: mucosa moist
== END 2024-05-12 16:29 | disposition home or self-care (01) ==
LOC: HO.HMCH 15:48
PROVIDERS: PCP Internal Medicine
DX: I10 Essential (primary) hypertension (principal); K22.70 Barrett's esophagus without dysplasia; N40.1 Benign prostatic hyperplasia with lower urinary tract symptoms; R35.0 Frequency of micturition; Z00.00 Encounter for general adult medical examination without abnormal findings; N28.9 Disorder of kidney and ureter, unspecified; I49.9 Cardiac arrhythmia, unspecified

== ENCOUNTER 2024-09-09 08:38 | Outpatient (AMB) | payer OTHER, SELFPAY ==
[2024-09-09 08:43] VITALS: BP 106/64; PULSE 73; TEMP 36.6; O2SAT 98; BMI 24.8
--- NOTE | 2024-09-09 08:43 | MHC.OFFWIV ---
Intake Vital Signs 09/09/24 08:43 Height 5 ft 10 in Weight 173 lb BMI 24.8 BP 106/64 Blood Pressure Location Lt brachial Position Sitting Pulse 73 Pulse Source Pulse Oximeter Temp 97.9 F Pulse Oximetry (%) 98 Oxygen Delivery Method Room Air Intake Visit Reasons: EP-rt shoulder pain Intake Note: presents with right shoulder pain after playing tennis yesterday, reports soreness a week prior Patient Tobacco Use Status: Former Tobacco user Allergies amlodipine Allergy (Intermediate, Verified 09/09/24 08:46) swollen ankles metoprolol Allergy (Unknown, Verified 09/09/24 08:46) Unknown lisinopril Adverse Reaction (Intermediate, Verified 09/09/24 08:46) cough Do you need a note to return to daycare/school/sports/work: No HPI HPI Comments History of Present Illness Details History - The patient is a 79-year-old male presenting with right shoulder pain since yesterday. - The pain began after playing tennis, specifically after hitting a ramón shot. - The patient reports that the shoulder was slightly sore a week prior to the incident, but the pain intensified after the activity. - The patient has a history of previous shoulder injuries, including a right shoulder injury two years ago and a left shoulder injury one year ago. - He also injured his right arm about a year ago. - The patient has not used any medications or topical treatments for the current pain but applied ice without relief. Physical Exam General: Cooperative, healthy appearing, comfortable, no acute distress and well developed Orientation: Patient oriented x3 Limitations: No limitations Head: Normal to inspection Ears: Hearing grossly normal bilaterally Nose: Normal External nose present Face and sinus: Normal facial exam Mouth: normal, moist oral mucosa Eyes: Appearance normal, both eyes and all related structures Neck: Normal visual inspection and Yes full ROM Respiratory: Normal respiratory effort and able to speak in complete sentences. Skin: no rashes or lesions noted Neuro: Patient oriented x3 Back/spine: no cervical spine TTP Extremities: moving all extremities normally, TTP right trapezius area. Full ROM right shoulder and elbow, negative empty can right side, negative lift off right side. FORMERLY [facility], 1928–1983 Medical History Arrhythmia Hiatal hernia Glaucoma History of alcohol abuse Constipation BPH (benign prostatic hyperplasia) GERD (gastroesophageal reflux disease) Hypertension Tubular adenoma of colon Mullins's esophagus Surgical History History of esophagogastroduodenoscopy (EGD) Hx of colonoscopy History of eye surgery Family History Father No problems noted. Mother No problems noted. Brother In good health Sister In good health Son In good health Social History Housing: House Are you a primary chiropractic care to a significant other at home: No Do you presently have visiting nurse or other home services: No Alcohol intake: former Comment: stopped since 1983 Patient Tobacco Use Status: Former Tobacco user Tobacco use type: Cigarette Years Smoked: stopped 1997 e-Cigarette/Vaping Use: Never Used Second Hand Smoke Exposure: Yes service: No Current occupational status: retired Cognitive needs: No Hearing needs: No Vision needs: Yes Review of Systems Const All systems reviewed & are unremarkable except as noted in HPI and below Physical Exam Vital Signs: Last Vital Signs Temp 97.9 F 09/09/24 08:43 Pulse 73 09/09/24 08:43 BP 106/64 09/09/24 08:43 Pulse Ox 98 09/09/24 08:43 Oxygen Delivery Method Room Air 09/09/24 08:43 BMI result Body Mass Index 24.8 Assessment & Plan Assessment & Plan (1) Strain of right trapezius muscle: Code(s): S46.811A - Strain of other muscles, fascia and tendons at shoulder and upper arm level, right arm, initial encounter Qualifiers: Encounter type: initial encounter Qualified Code(s): S46.811A - Strain of other muscles, fascia and tendons at shoulder and upper arm level, right arm, initial encounter Plan: Plan Patient was informed and verbally consented to the use of an ambient scribe for clinic note documentation during this visit - Recommend rest and avoidance of activities that may exacerbate the condition, such as tennis, for at least two weeks. - Advise the use of [id number] NSAIDs, specifically Aleve, 440mg every 12 hours for 3-4 days, then as needed. - Suggest application of ice to the affected area to reduce inflammation. - Consider the use of a sling as a reminder to rest the shoulder. - Monitor symptoms and return for reassessment if pain persists or worsens, with potential referral to physical therapy if necessary. Coding Level of Care Code Est Pt Level 3 (86954) Diagnoses Strain of right trapezius muscle, initial encounter S46.811A Encounter type: initial encounter
--- OUTSIDE RECORDS SUMMARY | 2024-09-09 08:54 | XMS_ITS | Patient Health Record ---
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 Role Phone Don Sampson MD Primary Care Provider Jose C Waterman [phone] Allergies No Known Allergies Results Component Value Reference Range Notes Pathology Reviewed date:02/12/2024 11:26:21 PM Interpretation: Performing Lab:[facility], [address] [place] [id number] Notes/Report: Reason For Referral No Information Medications Medication [...] Problem Status W/U Status Risk Notes Problem 406595803 Encounter for screening for malignant neoplasm of colon (Z12.11) Active confirmed Problem 212192970 History of adenomatous polyp of colon (Z86.010) Active confirmed Problem 124918075 Mullins's esophagus without dysplasia (K22.70) Active confirmed Problem Gastroesophageal reflux disease (K21.9) Active confirmed Problem 766742810 Blood in stool (K92.1) Active confirmed Problem 562743989 Gastroesophageal reflux disease without esophagitis (K21.9) Active confirmed Problem 234256028 Gastroesophageal reflux disease, esophagitis presence not specified (K21.9) Active confirmed Problem 33369069 Heme + stool (R19.5) Active confirmed Problem Mullins esophagus (016129490) 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) Active confirmed Problem Mullins's esophagus (249284449) Mullins''s esophagus without dysplasia (K22.70) Active confirmed Problem Gastroesophageal reflux disease (150440901) Chronic GERD (K21.9) Active confirmed Encounters Encounter Location Date Provider Diagnosis [facility] [address] [place] [address] [id number] 10/14/2023 Jose C Quinonez Mullins esophagus K2 2.70 ; Gastroesophageal reflux disease K21.9 and Hiatal hernia K44.9 Assessments Encounter Date Diagnosis (ICD Code) Assessment Notes Treatment Notes Treatment Clinical Notes Section Notes 10/14/2023 Gastroesophageal reflux disease (ICD-10 - K21.9) 10/14/2023 Mullins esophagus (ICD-10 - K22.70) 10/14/2023 Hiatal hernia (ICD-10 - K44.9) Plan Of Treatment Future Test Test Name Order Date UPPER GI ENDOSCOPY 02/08/2016 COLONOSCOPY 02/08/2016 UPPER GI ENDOSCOPY 07/23/2019 COLONOSCOPY 07/23/2019 UPPER GI ENDOSCOPY 06/26/2023 Insurance Providers Payer Name Payer Address Payer Phone Subscriber Number Group Number Insured Name Patient Relationship to Insured Coverage Start Date Coverage End Date [facility] [address] [place] [phone] [id number] OLEGARIO LUIS Self - patient is the insured Medical (General) History Medical History History ICD Code GERD--upper endoscopy in Mar with the finding of a small area of Mullins's esophagus and a moderate-sized hiatal hernia--biopsies were negative for dysplasia and there was no esophagitis Denies [place],DM,CVA,Lung disease,renal dise ase HTN BPH Glaucoma Colonoscopy [...]
--- OUTSIDE RECORDS SUMMARY | 2024-09-09 08:54 | XMS_ITS ---
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 Name Role Phone Unavailable Primary Care Physician Unavailab le History Of Present Illness This is a 79 year old male who is an established patient who is being seen for a chief complaint ofa skin lesion.Location: right nasal dorsumQuality: bleeding and redDuration: 1 weekModifying Factors: nothing makes it better or worseTreatment Status: has not been treatedReason for Visit: evaluationPertinent History: history of actinic keratoses, history of previous skin cancer, and history of basal cell carcinomaPertinent Negatives: no family history of melanoma and no family history of non-melanoma skin cancerAdditional History: Patient reports spot of concern on right nasal sidewall, had bled last Saturday after getting out of shower, red. Allergies, Adverse Reactions, Alerts Substance RxNorm Reaction(s) Severity Status Start Da te amlodipine Swelling unspecified active Medications Medication Generic Name RxNorm Strength Strength Unit Route Dose Dose Form Frequency Date Started Date Ended Status Indication Sig betamethaso ne dipropionat e betameth asone dipropio antoinette 152666 0.05 % Topica l ointm ent 03/13/19 20 suspend ed APPL Y BID TO AFFE CTED EAR PRN betamethaso ne, augmented betameth asone, augmente d 616911 0.05 % Topica l ointm ent 06/15/19 20 suspend ed Appl y BID to affe cted ear PRN betamethaso ne, augmented betameth asone, augmente d 485710 0.05 % Topica l 1 ointm ent prn 05/23/19 22 active Appl y BID to affe cted area on ears PRN desonide desonide 644430 0.05 % Topica l cream 07/23/19 21 suspend ed Appl y spar ingl y BID to ecze [place] eyes . triamcinolo ne acetonide triamcin olone acetonid e 8002676 0.1 % Topica l cream 09/07/19 20 suspend ed Appl y spar ingl y twic e a day for ecze ma and itch on arms and legs triamcinolo ne acetonide triamcin olone acetonid e 4496660 0.1 % Topica l 1 cream prn 02/23/19 22 active Appl y spar ingl y twic e a day for ecze ma and itch on arms and legs finasteride 5 mg Oral 1 tabl e t qd active hydrochloro thiazide hydrochl orothiaz stephen 12.5 mg Oral 1 table t qd active loratadine 10 mg Oral 1 table t qd active losartan 25 mg Oral 1 table t qd active omeprazole omeprazo le 10 mg Oral 1 capsu le,de layed relea se (ente syd coate d) qd active tamsulosin 0.4 mg Oral 1 capsu le qd active AMLODIPINE TAB 5MG NULL 02/23/19 12 active AMLODIPINE TAB 5MG NULL 01/19/20 10 active AmLODIPine Besylate NULL 0 16 active AmLODIPine Besylate NULL 0 16 active [id number] NULL 12/31/19 10 active Betamethaso ne Dipropionat e Aug NULL 02/14/20 17 suspend ed CEPHALEXIN CAP 500MG NULL 10 active Desonide NULL 11/20/19 18 suspend ed Efudex NULL 10/28/19 15 suspend ed Finasteride NULL 11/14/19 18 active HYDROCHLORO T TAB 25MG NULL 02/23 12 active Hydrocortis one NULL 11/14/19 18 suspend ed HYDROXYZ HCL TAB 10MG NULL 01/19/20 10 active Keflex NULL 12/31/19 10 active LISINOPRIL TAB 40MG NULL 0 10 active Locoid Lipocream NULL 08 active Loratadine NULL 11/14/19 18 active Tamsulosin HCl NULL 11/02/19 16 active Topicort NULL 04/10/19 08 active TRIAMCINOLO N CRE 0.1% NULL 01/18 10 active Valsartan NULL 11/14/19 18 active Problems Problem Code Type Status Date of Diagnosis Date of Resolution Actinic keratosis (disorder) (S NOMED) Diagnosis active 09/09/2024 History of malignant neoplasm of skin (situation) 820675628(S NOMED) Diagnosis active 08/03/2024 Basal cell carcinoma of nose (disorder) 054242705(S NOMED) Diagnosis active 08/03/2024 Actinic keratosis (disorder) (S NOMED) Diagnosis active 08/03/2024 Nummular eczema (disorder) 68665027(SN OMED) Diagnosis active 08/03/2024 Eczema (disorder) 93787458(SN OMED) Diagnosis active 08/03/2024 Inflammatory dermatosis (disorder) 212470641(S NOMED) Diagnosis active 08/03/2024 Seborrheic keratosis (disorder) 246028360(S NOMED) Diagnosis active 08/03/2024 Disorder of pigmentation (disorder) 663338651(S NOMED) Diagnosis active 08/03/2024 Disorder of capillaries (disorder) 40841512(SN OMED) Diagnosis active 08/03/2024 Hemangioma of skin and subcutaneous tissue (disorder) 213920799(S NOMED) Diagnosis active 08/03/2024 Melanocytic nevus of trunk (disorder) 725639567(S NOMED) Diagnosis active 08/03/2024 Basal cell carcinoma of face (disorder) 728070685(S NOMED) Diagnosis active 02/05/2024 Actinic keratosis (disorder) (S NOMED) Diagnosis active 02/05/2024 Nummular eczema (disorder) 70233517(SN OMED) Diagnosis active 02/05/2024 Eczema (disorder) 67019879(SN OMED) Diagnosis active 02/05/2024 Inflammatory dermatosis (disorder) 773701577(S NOMED) Diagnosis active 02/05/2024 Seborrheic keratosis (disorder) 304861218(S NOMED) Diagnosis active 02/05/2024 Disorder of pigmentation (disorder) 387508974(S NOMED) Diagnosis active 02/05/2024 Disorder of capillaries (disorder) 70143986(SN OMED) Diagnosis active 02/05/2024 Hemangioma of skin and subcutaneous tissue (disorder) 491422470(S NOMED) Diagnosis active 02/05/2024 Melanocytic nevus of trunk (disorder) 994759828(S NOMED) Diagnosis active 02/05/2024 Actinic keratosis (disorder) (S NOMED) Diagnosis active 02/04/2023 Chondritis of right external ear (disorder) 24854068548 04222(SNOME D) Diagnosis active 02/04/2023 Nummular eczema (disorder) 61801092(SN OMED) Diagnosis active 02/04/2023 Disorder of pigmentation (disorder) 890577777(S NOMED) Diagnosis active 02/04/2023 Disorder of capillaries (disorder) 96494371(SN OMED) Diagnosis active 02/04/2023 Hemangioma of skin and subcutaneous tissue (disorder) 897875876(S NOMED) Diagnosis active 02/04/2023 Melanocytic nevus of trunk (disorder) 601303900(S NOMED) Diagnosis active 02/04/2023 Seborrheic keratosis (disorder) 341851595(S NOMED) Diagnosis active 02/04/2023 Patient encounter status (finding) 737760063(S NOMED) Diagnosis active 02/04/2023 Actinic keratosis (disorder) (S NOMED) Diagnosis active 11/07/2022 Chondritis of right external ear (disorder) 47223383365 65582(SNOME D) Diagnosis active 02/07/2022 Nummular eczema (disorder) 52377469(SN OMED) Diagnosis active 02/07/2022 Disorder of pigmentation (disorder) 061194059(S NOMED) Diagnosis active 02/07/2022 Disorder of capillaries (disorder) 53859629(SN OMED) Diagnosis active 02/07/2022 Hemangioma of skin and subcutaneous tissue (disorder) 385716057(S NOMED) Diagnosis active 02/07/2022 Melanocytic nevus of trunk (disorder) 773648876(S NOMED) Diagnosis active 02/07/2022 Seborrheic keratosis (disorder) 037381439(S NOMED) Diagnosis active 02/07/2022 Patient encounter status (finding) 604207392(S NOMED) Diagnosis active 02/07/2022 Chondritis of right external ear (disorder) 51198752506 43566(SNOME D) Diagnosis active 02/06/2021 Atopic dermatitis (disorder) 70503083(SN OMED) Diagnosis active 02/06/2021 Actinic keratosis (disorder) (S NOMED) Diagnosis active 02/06/2021 Disorder of pigmentation (disorder) 601565008(S NOMED) Diagnosis active 02/06/2021 Chondritis of right external ear H61.031(ICD -10) Diagnosis active 02/15/2020 Intrinsic (allergic) eczema L20.84(ICD- 10) Diagnosis active 02/15/2020 Actinic keratosis L57.0(ICD-1 0) Diagnosis active 02/15/2020 Other melanin hyperpigmentation L81.4(ICD-1 0) Diagnosis active 02/15/2020 Chondritis of right external ear H61.031(ICD -10) Diagnosis active 03/11/2019 Actinic keratosis (disorder) (S NOMED) Diagnosis active 11/02/2015 Atopic dermatitis (disorder) 60162960(SN OMED) Diagnosis active 10/27/2014 Retinal detachment (disorder) 46916643(SN OMED) Problem active Actinic keratosis (disorder) (S NOMED) Problem active Benign prostatic hyperplasia (disorder) 254944617(S NOMED) Problem active Gastroesophageal reflux disease (disorder) 021281113(S NOMED) Problem active Increased blood pressure (finding) 67259088(SN OMED) Problem active Bilateral cataracts (disorder) 88285145(SN OMED) Problem active Eczema (disorder) 01270575(SN OMED) Problem active History of hay fever (situation) 513855655(S NOMED) Problem active Basal cell carcinoma of skin (disorder) 078521468(S NOMED) Problem active Results No data Encounters Service provided at [facility], [address] [place] [address], [address], [place], [place] [id number]. Office phonenumber is [phone]. Office fax number is [phone]. Encounter Diagnosis Location Date / Time Type Actinic Keratoses (L57.0) [facility] 09/09/2024 12:0 0:00 [facility] [id number] Reason For Referral I saw King Hoyt in the office on September 09, 2024.Below is a summary of our visit:Actinic Keratoses: 3-6 mm red scaly macules distributed on the medial frontal scalp, nasal dorsum, left central malar cheek, right central malar cheek, left nasal dorsum, and right nasal dorsum.Plan: Counseling, Prescription Medication Management, Diagnosis Comment, and Liquid Nitrogen.My impression and plan was the followin.Actinic Keratoses - 09/09/24: has been using 5FU 5% cream bid once weekly to forehead,nose and paranasal cheeks with good results except 5mm HAK L mid nasal sidewall has not been responsive and new 3mm AK R mid nasal sidewall which bled x 1 one week ago for which I suggested LN to which he agrees.CounselingPrescription Medication Management: medial frontal scalp; nasal dorsum; left central malar cheek; right central malar cheek; Initiate Treatment - Re-start 5FU 5% cream bid once weekly to AK???s on high forehead, nose and paranasal cheeks.; Modify Regimen - Has been using 5FU bid once weekly to nose without resolution. Suggest increase to bid on Sundays and to high f orehead, temples nose and L cheek.; Plan - Discussed NO INCUBATION PDT and given information which he will consider pending more aggressive 5FU BIW. He does not want aggressive BID treatment..Liquid Nitrogen: left nasal dorsum; right nasal dorsum; Application Tool - Cry-AC; Number of freeze-thaw Cycles - 1 freeze-thaw cycle; Duration of freeze thaw-cycle (seconds) - 15. Procedures Procedure Date Documentation of current medications (pr ocedure) 09/09/2024 12:00 am UTC Destruction of premalignant skin lesion (procedure) 09/09/2024 12:00 am UTC Shave excision of skin lesion (procedure ) 08/03/2024 12:00 am UTC Destruction of premalignant skin lesion (procedure) 02/05/2024 12:00 am UTC Shave excision of skin lesion (procedure ) 02/05/2024 12:00 am UTC History of colostomy (situation) Documentation of past medical history (p rocedure) Documentation of past medical history (p rocedure) History of colostomy (situation) Documentation of past medical history (p rocedure) History of colostomy (situation) 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) Bilateral extraction of cataracts (proce dure) History of colostomy (situation) 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) Documentation of past medical history (p rocedure) Bilateral extraction of cataracts (proce dure) History of colostomy (situation) 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) Documentation of past medical history (p rocedure) History of colostomy (situation) 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) Documentation of past medical history (p rocedure) Documentation of past medical history (p rocedure) History of colostomy (situation) 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) Documentation of past medical history (p rocedure) History of colostomy (situation) History of colostomy (situation) 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) Documentation of past medical history (p rocedure) History of colostomy (situation) Bilateral extraction of cataracts (proce dure) 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) Documentation of past medical history (p rocedure) null Review Of Systems Provider reviewed on Sep 09, 2024.A complete review of systems was performed and was notable for hay fever and joint aches.No Problems With Healing, No Problems With Scarring (hypertrophic Or Keloid), No Problems With Bleeding, No Immunosuppression, No Chest Pain, No Fever Or Chills, No Night Sweats, No Unintentional Weight Loss, No Thyroid Problems, No Sore Throat, No Blurry Vision, No AbdominalPain, No Bloody Stool, No Bloody Urine, No Muscle Weakness, No Neck Stiffness, No Headaches, No Seizures, No Shortness Of Breath, No Wheezing, No Anxiety, And No Depression. Assessment 1.Actinic Keratoses - 09/09/24: has been using 5FU 5% cream bid once weekly to forehead, nose and paranasal cheeks with good results except 5mm HAK L mid nasal sidewall has not been responsive and new3mm AK R mid nasal sidewall which bled x 1 one week ago for which I suggested LN to which he agrees. CounselingPrescription Medication Management: medial frontal scalp; nasal dorsum; left central malar cheek; right central malar cheek; Initiate Treatment - Re-start 5FU 5% cream bid once weekly to AK???s on high forehead, nose and paranasal cheeks.; Modify Regimen - Has been using 5FU bid once weekly to nose without resolution. Suggest increase to bid on Sundays and to high forehead, temples nose and L cheek.; Plan - Discussed NO INCUBATION PDT and given information which he will consider pending more aggressive 5FU BIW. He does not want aggressive BID treatment..Liquid Nitrogen: left nasal dorsum; right nasal dorsum; Application Tool - Cry-AC; Number of freeze-thaw Cycles - 1 freeze-thaw cycle; Duration of freeze thaw-cycle (seconds) - 15. Plan of Care Future visit for 09/09/2025 - Follow up in 1 year - (as previously scheduled) Code Detail Instructions [id number] triamcinolone aceton stephen 0.1 % topical cream Apply sparingly bid for hand dermatitis prn 989139 betamethasone, augme nted 0.05 % topical ointment Apply BID to affected area on ears PRN. 892583 betamethasone, augme nted 0.05 % topical ointment Apply BID to affected area on ears PRN. 804053 betamethasone, augme nted 0.05 % topical ointment Apply BID to affected area on ears PRN. 780591 betamethasone, augme nted 0.05 % topical ointment Apply BID to affected area on ears PRN 799845 betamethasone, augme nted 0.05 % topical ointment Apply BID to affected area on ears PRN 938690 betamethasone, augme nted 0.05 % topical ointment Apply BID to affected area on ears PRN 784212 betamethasone, augme nted 0.05 % topical ointment Apply BID to affected area on ears PRN 861311 betamethasone, augme nted 0.05 % topical ointment Apply BID to affected area on ears PRN 236283 betamethasone, augme nted 0.05 % topical ointment Apply BID to affected area on ears PRN 2373726 triamcinolone aceton stephen 0.1 % topical cream Apply sparingly twice a day for eczema and itch on arms and legs 418326 desonide 0.05 % topical cream Ap ply sparingly BID to eczema around eyes. 603814 betamethasone, augme nted 0.05 % topical ointment Apply BID to affected ear PRN 217962 betamethasone, augme nted 0.05 % topical ointment Apply BID to affected ear PRN 0455868 triamcinolone aceton stephen 0.1 % topical cream Apply sparingly twice a day for eczema and itch on arms and legs 5839571 triamcinolone aceton stephen 0.1 % topical cream Apply sparingly twice a day for eczema and itch on arms and legs 663379 betamethasone, augme nted 0.05 % topical ointment Apply BID to affected ear PRN 886713 betamethasone diprop ionate 0.05 % topical ointment APPLY BID TO AFFECTED EAR PRN Instructions * I counseled the patient regarding the following:Skin Care: Sun protective clothing, broad brimmed hat and broad spectrum sunscreen can prevent the formation of Actinic Keratoses. AKs can resolve withcryotherapy, photodynamic therapy, imiquimod, topical 5-FU.Expectations: Actinic Keratoses are preca ncerous proliferations that occur within sun damaged skin. If untreated, a small subset of AKs can develop into Squamous Cell Carcinoma. It is not likely that AK?s can be totally cured and there are likely to be recurrences and new lesions over time. The expectations with treatment should be control.Discussed 5FU and given AK info and treatment instructionsAdvised to seek shade, wear sun protective gear including wide brim hat, sunglasses and consider sun protective clothing. For patients with severe sun damage, might consider tinted car windows.I recommended the following: Broad Spectrum Sunscreen SPF 30+ Social History Code Activity Start Date End Date 9998373 (SNOMED) Former smoker Sex male Sexual orientation Unspecified Gender identity Unspecified Vital Signs No data
== END 2024-09-09 09:33 | disposition home or self-care (01) ==
PROVIDERS: PCP Internal Medicine; Visit Provider Physician Assistant
DX: S46.811A Strain of other muscles, fascia and tendons at shoulder and upper arm level, right arm, initial encounter (principal)

== ENCOUNTER 2024-11-03 08:30 | Outpatient (REF) | payer OTHER, SELFPAY ==
--- OUTSIDE RECORDS SUMMARY | 2023-10-14 07:30 | XMS_ITS ---
Author Organization [facility] Address [address] [place] [id number] Care Team Providers Care Handy Worker Name Role Phone Don Sampson MD Primary Care Provider Jose C Waterman [phone] REASON FOR VISIT garrison's, gerd Problems Problem Type SNOMED Code ICD Code Onset Dates Problem Status W/U Status Risk Notes Problem Garrison esophagus ([id number]) Garrison esophagus (K22.70) Active confirmed Problem Gastroesophageal reflux disease ([id number]) Gastroesophageal reflux disease (K21.9) Active confirmed Encounters Encounter Location Date Provider Diagnosis [facility] [place] [address] [place] [id number] 10/14/2023 Jose C Quinonez Garrison esophagus K2 2.70 ; Gastroesophageal reflux disease K21.9 and Hiatal hernia K44.9 Assessments Encounter Date Diagnosis (ICD Code) Assessment Notes Treatment Notes Treatment Clinical Notes Section Notes 10/14/2023 Garrison esophagus (ICD-10 - K22.70) 10/14/2023 Gastroesophageal reflux disease (ICD-10 - K21.9) 10/14/2023 Hiatal hernia (ICD-10 - K44.9) Plan Of Treatment No Information Progress Notes * OLEGARIO LUIS RDOB: [birth year] (79 yo M)Acc No.[id number]:10/14/2023 EGD/MAC Patient: OLEGARIO DUKE Provider: Roxana Quinonez MD :1945 A ge:78 Y S ex:Male Date:10/14/2023 Address:[address] [place], [place] [id number] Pcp:Don Sampson MD Subjective: * Chief Complaints: * 1 . Garrison's, gerd. * Medical History: Objective: * Vitals: Assessment: * Assessment: 1. B arrett esophagus - K22.70 (Primary) 2 . G astroesophageal reflux disease - K21.9 3 . H iatal hernia - K44.9 Plan: * Treatment: * Procedure Codes: 4 3239 UPPER GI ENDOSCOPY, BIOPSY, 3126F ESOPH BX RPRT W/DYSPL INFO * * The named appointment provid er may or may not be the originator of this progress note, and it is not deemed complete until electronically signed by the appointment provider. Sign off status: Pending * Provider: Roxana Quinonez MD Date: 0 10/14/2023 Generated for Valeria duncan/Barbara/Patrickitting on: 0 11/03/2024 10:09 AM EDT
[2024-11-03 08:54] LABS: MANUAL DIFF FLAG NO
[2024-11-03 09:24] LABS: Hematocrit 43.4 % (42.0-52.0); Hemoglobin 15.3 g/dl (14.0-18.0); Imm Gran Abs Auto 0.02 X10*3/uL (0.00-0.03); Imm Gran Pct Auto 0.4 % (0.0-0.4); Lymphocytes Absolute Auto 1.3 X10*3/uL (1.2-4.9); Mean Corpuscular HGB Conc 35.3 g/dl (31.0-36.0); Mean Corpuscular Hemoglobin 32.0 pg (27.0-33.0); Mean Corpuscular Volume 90.8 fL (80.0-98.0); NRBC Abs Auto 0.000 X10*3/uL (0.0-0.012); NRBC Pct Auto 0.0 /100WBC (0.0-0.2); Platelet Count 246 X10*3/uL (160-400); Red Blood Count 4.78 X10*6/uL (4.60-5.80); White Blood Count 5.5 X10*3/uL (4.8-10.8)
[2024-11-03 10:07] LABS: Alanine Aminotransferase 18 U/L (0-40); Albumin Level 4.3 g/dL (3.5-5.0); Alkaline Phosphatase 65 U/L (39-117); Anion Gap 10 (12-20); Aspartate Amino Transferase 21 U/L (5-37); Blood Urea Nitrogen 14 mg/dL (9-16); Calcium 9.5 mg/dL (8.4-10.2); Carbon Dioxide 32 mmol/L (22-29); Chloride 103 mmol/L (96-108); Cholesterol 208 mg/dL (<200); Estimated Glomerular Filt Rate 52; HDL Cholesterol 56 mg/dL (>40); Potassium 3.8 mmol/L (3.3-5.1); Sodium 141 mmol/L (135-145); Total Protein 7.1 g/dL (6.5-8.0); Triglycerides 128 mg/dL (<150)
--- OUTSIDE RECORDS SUMMARY | 2024-11-03 10:09 | XMS_ITS | Patient Health Record ---
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 Problem Gastroesophageal reflux disease (758453409) Gastroesophageal reflux disease (K21.9) Active confirmed Problem 981131927 Blood in stool (K92.1) Active confirmed Problem 020781735 Gastroesophageal reflux disease without esophagitis (K21.9) Active confirmed Problem 152545055 Gastroesophageal reflux disease, esophagitis presence not specified (K21.9) Active confirmed Problem 77985316 Heme + stool (R19.5) Active confirmed Problem Mullins esophagus (894889538) 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) Active confirmed Problem Mullins's esophagus (550369135) Mullins''s esophagus without dysplasia (K22.70) Active confirmed Problem Gastroesophageal reflux disease (063765270) Chronic GERD (K21.9) Active confirmed Plan Of Treatment Future Test Test Name Order Date UPPER GI ENDOSCOPY 02/08/2016 COLONOSCOPY 02/08/2016 UPPER GI ENDOSCOPY 07/23/2019 COLONOSCOPY 07/23/2019 UPPER GI ENDOSCOPY 06/26/2023 Insurance Providers Payer Name Payer Address Payer Phone Subscriber Number Group Number Insured Name Patient Relationship to Insured Coverage Start Date Coverage End Date [facility] [address] [place] [phone] [id number] OLEGARIO LUIS Self - patient is the insured Medical (General) History Medical History History ICD Code GERD--upper endoscopy in Mar with the finding of a small area of Mullins's esophagus and a moderate-sized hiatal hernia--biopsies were negative for dysplasia and there was no esophagitis Denies [place],DM,CVA,Lung disease,renal dise ase HTN BPH Glaucoma Colonoscopy [...]
[2024-11-03 10:23] LABS: Folate 15.6 ng/mL (> or = 4.0); Vitamin B12 679 pg/mL (200-900)
[2024-11-03 10:32] LABS: Free T4 (Free Thyroxine) 1.12 ng/dL (0.71-1.85)
== END 2024-11-03 08:31 | disposition home or self-care (01) ==
LOC: HO.LAB 08:30
PROVIDERS: PCP Internal Medicine
DX: Z00.00 Encounter for general adult medical examination without abnormal findings (principal); E78.00 Pure hypercholesterolemia, unspecified
CPT/HCPCS: 36415; 80053; 80061; 82306; 82607; 82746; 84439; 84443; 85025